=== PATIENT | male | born 1940 | race Caucasian/White ===

== ENCOUNTER 2017-02-09 11:00 | Inpatient (IN) | payer MEDICARE, OTHER ==
[2017-02-06 16:35] LABS: HEMATOCRIT 37.2 % (42.0-54.0); HEMOGLOBIN 11.8 g/dL (13.5-17.5); MCH 23.4 pg (26.0-34.0); MCHC 31.7 g/dL (31.0-37.0); MCV 73.7 fL (80.0-100.0); RBC 5.05 10x6/uL (4.20-6.10); RDW 17.4 % (11.5-14.5); WBC 9.6 10x3/uL (4.8-10.8)
[2017-02-06 16:56] LABS: CALC OSMOLALITY 271 mosm/kg (275-300); CALCIUM 8.5 mg/dL (8.5-10.1); CHLORIDE - SERUM 98 mmol/L (98-107); CREATININE - SERUM 0.8 mg/dL (0.6-1.3); POTASSIUM - SERUM 4.8 mmol/L (3.5-5.1); SODIUM 133 mmol/L (136-145); UREA NITROGEN 13 mg/dL (7-18); eGFR NON AFRICAN AMERICAN > 90 mL/min (90-120)
[2017-02-06 16:57] LABS: GLUCOSE 206 mg/dL (74-106)
[~2017-02-09] VITALS: Ht 172.7 cm; Wt 81.6 kg
[2017-02-09] VITALS (11 sets, daily range): BP systolic 99–149; BP diastolic 41–70; BMI 27.4
[~2017-02-09 11:00] MED LIST: ASPIRIN81 MG PO; BENZONATATE200 MG PO; CELEXA20 MG PO; CLARITIN 10 MG10 MG PO; CLEOCIN HCL300 MG PO; DUONEB 2.5-0.5 M3 ML UPD; HYDROCODONE-APA1 TAB PO; IPRAT-ALBUT 0.5-3 ML UPD; KEFLEX500 MG PO; LEVEMIR100 U/M1 SC; LOPRESSOR25 MG PO; LOPRESSOR50 MG PO; MEDROL DOSE PACK4 MG PO; MELATONIN 3 MG1 TAB PO; MUCINEX600 MG PO; NEURONTIN 300300 MG PO; NICODERM C1 PATCH .1 TRANSDERM; NOVOLOG100 U/M1 SQ; OXYCODONE HCL5 MG PO; PLAVIX75 MG; PLAVIX75 MG PO; PRAVACHOL40 MG PO; PREDNISONE10 MG; PRILOSEC20 MG PO; TYLENOL W/CODEIN5 ML PO; ZESTRIL40 MG PO; ZITHROMAX500 MG PO
--- NOTE | 2017-02-09 13:19 | NUR ---
WOUND VAC INTERMITTANTLY ALARMING. NOTIFIED . LEFT MESSAGE FOR WOUND CARE NURSE.
--- NOTE | 2017-02-09 21:56 | NUR ---
REC'D PATIENT LYING IN BED ASLEEP. NO DISTRESS NOTED. ALERT AND ORIENTED X4. REPORTED THAT HE WAS UNCOMFORTABLE. INSTRUCTED HIM ON THE USE OF HIS BUTCHER. VERBALIZED UNDERSTANDING. DENIED FURTHER NEEDS. WILL CONT TO MONITOR. BED LOW, LOCKED, CALL LIGHT IN REACH, ALARM ON. INSTRUCTED TO CALL IF NEEDED ANYTHING, VERBALIZED UNDERSTANDING.
--- NOTE | 2017-02-10 01:50 | NUR ---
PATIENT IS RESTING WELL IN BED. NO DISTRESS NOTED. WILL CONT TO MONITOR. BED LOW, LOCKED, CALL LIGHT IN REACH, ALARM ON.
--- NOTE | 2017-02-10 02:00 | NUR ---
PT IN BED WITH NO DISTRESS. RESPIRATIONS EVEN AND UNLABORED. SIDE RAILS X 2. BED IS LOW. CALL LIGHT IN REACH.
[2017-02-10 04:00] VITALS: BP 187/99
[2017-02-10 07:15] LABS: BASOPHILS 0.2 % (0-2); EOSINOPHILS 1.4 % (0-7); HEMATOCRIT 33.9 % (42.0-54.0); HEMOGLOBIN 10.4 g/dL (13.5-17.5); IMMATURE GRANULOCYTES 1.4 % (0-5); LYMPHOCYTES 15.5 % (15-50); MCH 22.9 pg (26.0-34.0); MCHC 30.7 g/dL (31.0-37.0); MCV 74.5 fL (80.0-100.0); MEAN PLATELET VOLUME 8.8 fL (7.4-10.4); MONOCYTES 17.2 % (2-11); NEUTROPHILS 64.3 % (40-80); PLATELET COUNT 265 10x3/uL (130-400); RBC 4.55 10x6/uL (4.20-6.10); RDW 17.3 % (11.5-14.5); WBC 9.4 10x3/uL (4.8-10.8)
--- NOTE | 2017-02-10 07:15 | NUR ---
PT REC'D FROM [facility]. RESTING IN BED WITH EYES CLOSED. RESP EVEN AND UNLABORED. NO SIGNS OF DISTRESS. WOUND VAC TO L BKA PULLING SEROSANGUINOUS FLUID TO COLLECTION CHAMBER. BED LOW, CALL LIGHT IN REACH, DENIES NEEDS. CPOC.
[2017-02-10 07:52] LABS: ALBUMIN 2.5 g/dL (3.4-5.0); ALKALINE PHOSPHATASE 103 U/L (46-116); ALT (SGPT) 9 U/L (10-68); CALC OSMOLALITY 274 mosm/kg (275-300); CALCIUM 7.9 mg/dL (8.5-10.1); CARBON DIOXIDE 27.6 mmol/L (21.0-32.0); CHLORIDE - SERUM 99 mmol/L (98-107); CREATININE - SERUM 0.8 mg/dL (0.6-1.3); GLUCOSE 218 mg/dL (74-106); POTASSIUM - SERUM 4.4 mmol/L (3.5-5.1); PROTEIN - SERUM 5.8 g/dL (6.4-8.2); SODIUM 134 mmol/L (136-145); UREA NITROGEN 12 mg/dL (7-18); eGFR NON AFRICAN AMERICAN > 90 mL/min (90-120)
[2017-02-10 08:54] VITALS: BP 153/72
--- NOTE | 2017-02-10 09:30 | NUR ---
NEW BAG OF IVF HUNG PER OCT. PT RESTING IN BED WITH EYES CLOSED. NO SIGNS OF DISTRESS. RESP EVEN AND UNLABORED. BED LOW, CALL LIGHT IN REACH, DENIES NEEDS. CPOC.
--- NOTE | 2017-02-10 10:59 | NUR ---
PT HERE FOR AN INFECTED LEFT STUMP FOR THIS VISIT. PT AOX4 RESP EVEN AND NONLABORED IV TO RIGHT FOREARM PATENT AND INTACT. SRX2 BED AT LOWEST SETTING CALL LIGHT WITHIN REACH
--- NOTE | 2017-02-10 12:30 | NUR ---
HOME MEDS RESTARTED. CURRENT FSBS 265. BOTH RAPID AND LONG ACTING INSULIN ADMINISTERED PER MAR. SITTING UP AT BEDSIDE WITH LUNCH TRAY IN ROOM. BED LOW, CALL LIGHT IN REACH, DENIES NEEDS. CPOC.
[2017-02-10 19:00] VITALS: BP 143/65
--- NOTE | 2017-02-10 19:35 | NUR ---
RECIEVED SHIFT REPORT. PT IS LYING IN BED. ALERT AND ORIENTED AND ABLE TO VERBALIZE NEEDS. IV IS PATENT AND FLUIDS ARE RUNNING PER ORDER. O2 @ 2 PER NASAL CANNULA. PT IS ABLE TO TURN SELF IN BED FOR COMFORT AND SKIN CARE. DRESSING TO BKA C/D/I. PT STATES PAIN IS 9/10 WITH MEDICAL SERVICES ASSISTANT PUMP. NO NEEDS ARE VERBALIZED AT THIS TIME. WILL CONTINUE TO MONITOR. SIDE RAILS ARE UP X 2. BED IS IN LOWEST POSITION. CALL LIGHT IS WITHIN REACH.
--- NOTE | 2017-02-10 20:24 | NUR ---
SHIFT ASSESSMENT COMPLETED. NIGHT MEDS GIVEN WITH NO PROBLEMS. PT RECIEVED 4 UNITS INSULIN PER SLIDING SCALE FOR RLFA=147. NO NEEDS ARE VOICED. WILL MONITOR. SIDE RAILS X 2. BED LOW. CALL LIGHT IN REACH.
[2017-02-11] VITALS: BP 135/63
[2017-02-11 04:00] VITALS: BP 143/70
[2017-02-11 05:15] LABS: BASOPHILS 0.1 % (0-2); EOSINOPHILS 1.7 % (0-7); HEMATOCRIT 35.1 % (42.0-54.0); HEMOGLOBIN 10.8 g/dL (13.5-17.5); LYMPHOCYTES 16.4 % (15-50); MCH 22.7 pg (26.0-34.0); MCHC 30.8 g/dL (31.0-37.0); MCV 73.7 fL (80.0-100.0); MEAN PLATELET VOLUME 8.7 fL (7.4-10.4); MONOCYTES 16.8 % (2-11); PLATELET COUNT 256 10x3/uL (130-400); RBC 4.76 10x6/uL (4.20-6.10); WBC 8.4 10x3/uL (4.8-10.8)
[2017-02-11 05:39] LABS: ALBUMIN 2.8 g/dL (3.4-5.0); ALKALINE PHOSPHATASE 109 U/L (46-116); ALT (SGPT) 10 U/L (10-68); BILIRUBIN - TOTAL 0.57 mg/dL (0.2-1.3); CALCIUM 8.5 mg/dL (8.5-10.1); CARBON DIOXIDE 26.5 mmol/L (21.0-32.0); CHLORIDE - SERUM 97 mmol/L (98-107); CREATININE - SERUM 0.7 mg/dL (0.6-1.3); PROTEIN - SERUM 6.5 g/dL (6.4-8.2); SODIUM 133 mmol/L (136-145); UREA NITROGEN 14 mg/dL (7-18); eGFR NON AFRICAN AMERICAN > 90 mL/min (90-120)
[2017-02-11 05:41] LABS: CALC OSMOLALITY 270 mosm/kg (275-300); GLUCOSE 164 mg/dL (74-106)
[2017-02-11 09:00] VITALS: BP 142/65
--- NOTE | 2017-02-11 11:56 | NUR ---
Patient Name: GONZALEZ OLIVEIRA Admission Status: Elective Accout number: [id number] Admission Date: 02-09-2017 : 1940 Admission Diagnosis: Attending: ARIELLE Current LOS: 2 Anticipated DC Date: Planned Disposition: Primary Insurance: MEDICARE A & B Discharge Planning Comments: CM MET WITH PATIENT AND (ALIDA) REGARDING D/C NEEDS AND PLANS. PATIENT STATED HE HAS A RAMP AT HIS HOME AND HIS AND DAUGHTER WILL DRIVE HIM HOME AT DISCHARGED. PATIENT HAS A RAMP TO ENTER HOME AND NO STAIRS INSIDE. PATIENT STATES HE IS INDEPENDENT WITH HIS CARE BUT NEEDS SOME HELP WHEN DRESSING AND HIS MEDICATIONS. PATIENT HAS A SLIDE BOARD, WHEELCHAIR, SHOWER CHAIR, AND GLUCOMETER AT HOME. PATIENTS PCP IS DR. MCLAUGHLIN IN [place], AND USES [facility] IN [place]. PATIENT IS CURRENT WITH [facility]. PATIENT STATED HIS DAUGHTER AND ALSO HELPS HIM ALOT. PCP DR. JULIA KERR IN [place] [phone] ALIDA (SPOUSE) [phone] Body Trimmer Upholsterer: Ro Thompson Is the patient Alert and Oriented? Yes 0 * How many steps to enter\exit or inside your home? RAMP 0 * PCP DR. DUMONT ([place]) 0 * Pharmacy [facility] ([facility]) 0 * Preadmission Environment Home with Family 0 * ADLs Partial Dependent 0 * Partial ADLs (Assistance needed) Ambulation Dressing Transfers 0 * Equipment Glucometer Shower Chair Wheelchair 0 * List name and contact numbers for known caregivers / representatives who currently or will assist patient after discharge: ALIDA () [phone] 0 * Community resources currently utilized None 0 * Additional services required to return to the preadmission environment? Yes 0 * Can the patient safely return to the preadmission environment? Yes 0 * Has this patient been hospitalized within the prior 30 days at any hospital? No 0 Grand Total: 0
[2017-02-11 12:31] VITALS: BP 119/64
[2017-02-11 17:11] VITALS: BP 105/47
[2017-02-11 20:00] VITALS: BP 135/56
--- NOTE | 2017-02-11 21:02 | NUR ---
UP ON SIDE OF BED. ALERT ORIENTED. X 3. IV INFUSING TO LEFT ARM WITHOUT REDNESS OR EDEMA NOTED. CONSTAVAC INTACT TO LEFT BKA..NO CONMPLAINTS VOICED. CL IN REACH.
[2017-02-12] VITALS: BP 133/60
--- NOTE | 2017-02-12 01:30 | NUR ---
RESTING QUIETLY. NO DISTRESS NOTED. CL IN REACH
--- NOTE | 2017-02-12 02:00 | NUR ---
PT IN BED WITH NO DISTRESS. RESPIRATIONS EVEN AND UNLABORED. SIDE RAILS X 2. BED LOW. CALL LIGHT IN REACH.
[2017-02-12 04:00] VITALS: BP 135/66
--- NOTE | 2017-02-12 05:29 | NUR ---
REMAINS NPO FOR OR. NO CHANGE IN ASSESMENT.
[2017-02-12 05:35] LABS: BASOPHILS 0.2 % (0-2); HEMATOCRIT 35.9 % (42.0-54.0); HEMOGLOBIN 11.3 g/dL (13.5-17.5); IMMATURE GRANULOCYTES 1.1 % (0-5); LYMPHOCYTES 14.7 % (15-50); MCH 23.1 pg (26.0-34.0); MCHC 31.5 g/dL (31.0-37.0); MCV 73.3 fL (80.0-100.0); MEAN PLATELET VOLUME 9.1 fL (7.4-10.4); MONOCYTES 18.2 % (2-11); NEUTROPHILS 64.8 % (40-80); PLATELET COUNT 304 10x3/uL (130-400); RDW 16.9 % (11.5-14.5); WBC 10.5 10x3/uL (4.8-10.8)
[2017-02-12 05:52] LABS: ALBUMIN 2.7 g/dL (3.4-5.0); ALKALINE PHOSPHATASE 106 U/L (46-116); ALT (SGPT) 11 U/L (10-68); CALC OSMOLALITY 268 mosm/kg (275-300); CALCIUM 8.4 mg/dL (8.5-10.1); CARBON DIOXIDE 25.2 mmol/L (21.0-32.0); CHLORIDE - SERUM 96 mmol/L (98-107); CREATININE - SERUM 0.8 mg/dL (0.6-1.3); GLUCOSE 181 mg/dL (74-106); POTASSIUM - SERUM 4.2 mmol/L (3.5-5.1); PROTEIN - SERUM 6.4 g/dL (6.4-8.2); SODIUM 132 mmol/L (136-145); eGFR NON AFRICAN AMERICAN > 90 mL/min (90-120)
[2017-02-12 05:59] LABS: UREA NITROGEN 10 mg/dL (7-18)
--- NOTE | 2017-02-12 07:40 | NUR ---
PT AOX4 RESP EVEN AND NONLABORED PT DENIES NEEDS AT THIS TIME IV TO RIGHT FOREARM PATENT SRX2 BED AT LOWEST SETTING CALL LIGHT WITHIN REACH WILL CONTINUE TO MONITOR
[2017-02-12 09:27] VITALS: BP 175/88
[2017-02-12 13:20] VITALS: BP 131/93
[2017-02-12 14:47] VITALS: Ht 172.7 cm; Wt 81.6 kg
[2017-02-12 16:11] VITALS: BP 118/65
[2017-02-12 20:00] VITALS: BP 106/71
--- NOTE | 2017-02-12 20:48 | NUR ---
AWAKE,WATHCHING TV. NO COMPLAINTS VOICED. IV INFUSING TO RIGHT FOREARM WITHOUT REDNESS OR EDEMA NOTED. COMMERCIAL CREDIT ANALYST DILAUDID IN USE FOR PAIN CONTROL. WOUND VAC INTAC TO LEFT STUMP. CL IN REACH
--- NOTE | 2017-02-12 23:27 | NUR ---
RN NOTE: PT SITTING UP AT BEDSIDE TABLE WATCHING TV. WOUND VAC ON LEFT STUMP WELL COMPRESSED WITH NO LEAKAGE ALARMS. IV IN LEFT WRIST PATENT WITH 1/2 NS INFUSING AT 50 ML / HR. QUALITY CONTROL MANAGER / DILAUDID IN USE FOR PAIN CONTROL. PROVIDED PT WITH ICE CREAM AND LEMON SEL[place]IK SODA PER REQUEST. WILL CONTINUE TO MONITOR FOR NEEDS. CALL LIGHT WITHIN REACH.
[2017-02-13] VITALS: BP 111/56
[2017-02-13 04:00] VITALS: BP 145/67
[2017-02-13 06:00] LABS: BASOPHILS 0.2 % (0-2); EOSINOPHILS 1.1 % (0-7); HEMATOCRIT 31.7 % (42.0-54.0); HEMOGLOBIN 10.1 g/dL (13.5-17.5); IMMATURE GRANULOCYTES 1.1 % (0-5); LYMPHOCYTES 14.3 % (15-50); MCH 23.5 pg (26.0-34.0); MCHC 31.9 g/dL (31.0-37.0); MCV 73.9 fL (80.0-100.0); MEAN PLATELET VOLUME 8.7 fL (7.4-10.4); MONOCYTES 19.9 % (2-11); NEUTROPHILS 63.4 % (40-80); RBC 4.29 10x6/uL (4.20-6.10)
--- NOTE | 2017-02-13 06:02 | NUR ---
WATCHING TV QUIETLY. NO COMPLAINTS VVOICED. CL IN REACH
[2017-02-13 06:04] LABS: PLATELET COUNT 231 10x3/uL (130-400)
[2017-02-13 06:33] LABS: ALBUMIN 2.5 g/dL (3.4-5.0); ALKALINE PHOSPHATASE 94 U/L (46-116); ALT (SGPT) 11 U/L (10-68); BILIRUBIN - TOTAL 0.49 mg/dL (0.2-1.3); CALC OSMOLALITY 261 mosm/kg (275-300); CALCIUM 8.1 mg/dL (8.5-10.1); CARBON DIOXIDE 27.2 mmol/L (21.0-32.0); CHLORIDE - SERUM 96 mmol/L (98-107); CREATININE - SERUM 0.8 mg/dL (0.6-1.3); POTASSIUM - SERUM 4.4 mmol/L (3.5-5.1); SODIUM 130 mmol/L (136-145); UREA NITROGEN 12 mg/dL (7-18); eGFR NON AFRICAN AMERICAN > 90 mL/min (90-120)
[2017-02-13 06:35] LABS: GLUCOSE 118 mg/dL (74-106)
--- NOTE | 2017-02-13 08:00 | NUR ---
PATIENT IN BED WITH NO COMPLAINTS AT THIS TIME. IV INTACT. CALL LIGHT WITHIN REACH.
[2017-02-13 08:44] VITALS: BP 117/63
[2017-02-13 12:40] VITALS: BP 129/59
[2017-02-13 15:36] VITALS: BP 135/67
--- NOTE | 2017-02-13 16:12 | NUR ---
PATIENT IN BED WITH IV INTACT. FAMILY AT BEDSIDE. DRESSING TO LEFT STUMP CDI. CALL LIGHT WITHIN REACH.
--- NOTE | 2017-02-13 17:18 | NUR ---
CM REASSESSMENT NOTE: PATIENT IS D/C HOME TODAY/FAMILY DRIVING. [facility] WILL DELIVER ABX IN THE AM AND THEY ARE AWARE OF PATIENTS D/C TODAY. PATIENT IS CURRENT WITH [facility] AND ARE AWARE ALSO OF PATIENT D/C TODAY. WV WAS DELIVERED AND NURSE WILL CHANGE BEFORE D/C TODAY.
--- NOTE | 2017-02-13 18:45 | NUR ---
PATIENT RECIEVED DC INSTRUCTIONS. VERBALIZED UNDERSTANDING. NO QUESTIONS AT THIS TIME. WOUND VAC CHANGED TO HOME WOUND VAC. NO QUESTIONS. STATED HE HAD ONE BEFORE. IV REMOVED WITH CATH TIP INTACT. PATIENT ESCORTED OUT OF HOSPITAL VIA WC WITH PERSONAL BELONGINGS BY FAMILY AND DIE TRIMMER.
--- NOTE | 2017-02-26 13:14 | OP ---
PATIENT NAME: GONZALEZ OLIVEIRA MEDICAL RECORD: [id number] :[birth year] LOCATION:D.[id number] ADMISSION DATE:02/09/17 SURGEON: DEEPAK EVERETT MD OPERATION DATE: 02/09/17 DATE OF OPERATION: 02/09/2017 Orthopedic Surgery Operative Note PREOPERATIVE DIAGNOSIS: Osteomyelitis of the left BKA stump. POSTOPERATIVE DIAGNOSIS: Osteomyelitis of the left BKA stump. PROCEDURES: 1. Excisional debridement of the left stump to include skin, subcutaneous tissue, portions of fat, fascia, muscle and bone. 2. Application of a negative pressure wound VAC. SURGEON: Deepak Everett MD. ANESTHESIA: General. INTRAOPERATIVE COMPLICATIONS: None. 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 OPERATIVE SUMMARY IN DETAIL: After obtaining the appropriate preoperative orthopedic surgery consent as well as anesthetic consultation, evaluation and clearance, the patient was brought to the operating room and placed on the operating table in supine position. After adequate general laryngeal mask was administered, tourniquet was placed about the proximal aspect of the left lower extremity. Left lower extremity was then prepped and draped in routine sterile fashion. A tourniquet was not used during this case, all portions of appearing tissue were taken after cultures were taken, this was elliptically excised and unfortunately this did go down to the medullary cavity of the tibia. A large curette was used to debride any appearing bone and good bleeding bone was encountered, the bone debridement stopped. Soft tissue, fascia as well as muscle were also taken down. The patient had a superior medial tracking. After good nonpurulent return and all viable tissue was seen, wound VAC was affixed across this large wound with wound measurements as documented in the postoperative note. Having completed this, the patient was awakened, taken to recovery room in stable condition. All final needle and sponge counts were correct. TRANSINT:[id number] Voice Confirmation ID: [id number] DOCUMENT ID: [id number] OPERATIVE REPORT [id number] GONZALEZ OLIVEIRA MD, DEEPAK HOGAN at 1314 CC: [id number] DICTATION DATE: 02/20/17 1023 BUILDING EQUIPMENT INSPECTOR: 02/25/17 2328 DIS IN 02/13/17 [facility] [address] [facility] [place] [address]
== END 2017-02-13 19:08 | disposition home health service (06) | DRG 493 ==
LOC: D.SDCHOLD → D.MS 11:00 → D.SDCHOLD 11:00 → D.OPS 12:15 → D.PAN 12:15 → EDSTATUS 12:15 → D.MS 13:29
PROVIDERS: Anesthesiology; Emergency Medicine; ADMIT Orthopaedic Surgery
PROC: B548ZZA Ultrasonography of Superior Vena Cava, Guidance (ICD-10-PCS; 2017-02-12)
PROC: 02HV33Z Insertion of Infusion Device into Superior Vena Cava, Percutaneous Approach (ICD-10-PCS; principal; 2017-02-13)
PROC: 0QBH0ZZ Excision of Left Tibia, Open Approach (ICD-10-PCS; 2017-02-13)
DX: T87.44 Infection of amputation stump, left lower extremity (principal); M86.9 Osteomyelitis, unspecified; I42.9 Cardiomyopathy, unspecified; F17.203 Nicotine dependence unspecified, with withdrawal; L02.91 Cutaneous abscess, unspecified; J96.12 Chronic respiratory failure with hypercapnia; J96.11 Chronic respiratory failure with hypoxia; D62 Acute posthemorrhagic anemia; E11.69 Type 2 diabetes mellitus with other specified complication; Z79.4 Long term (current) use of insulin; J44.9 Chronic obstructive pulmonary disease, unspecified; Z99.81 Dependence on supplemental oxygen; E11.40 Type 2 diabetes mellitus with diabetic neuropathy, unspecified; I25.10 Atherosclerotic heart disease of native coronary artery without angina pectoris; I73.9 Peripheral vascular disease, unspecified

== ENCOUNTER → 2017-07-13 09:36 | Outpatient (CLI) | payer MEDICARE, OTHER ==
[2017-02-12 14:47] VITALS: BMI 27.3
[~2017-07-13 09:36] MED LIST changes: +DOXYCYCLINE HY100 M2 PO; +ELIQUIS2.5 MG PO; +GABAPENTIN100 MG PO; +MORPHINE SULFAT15 M4 PO; +PERCOCET 10/3251 TA1 PO; +PROVENTIL HFA6.7 GM INH
== END | disposition home or self-care (01) ==
LOC: D.MRI 09:36
DX: B99.9 Unspecified infectious disease (principal); M86.662 Other chronic osteomyelitis, left tibia and fibula

== ENCOUNTER 2017-07-23 05:55 | Inpatient (IN) | payer MEDICARE, OTHER ==
[2017-07-22 10:13] LABS: HEMATOCRIT 36.2 % (42.0-54.0); HEMOGLOBIN 11.2 g/dL (13.5-17.5); MCH 23.4 pg (26.0-34.0); MCHC 30.9 g/dL (31.0-37.0); MCV 75.6 fL (80.0-100.0); MEAN PLATELET VOLUME 9.7 fL (7.4-10.4); RBC 4.79 10x6/uL (4.20-6.10); RDW 16.3 % (11.5-14.5); WBC 11.4 10x3/uL (4.8-10.8)
[2017-07-22 11:12] LABS: CALC OSMOLALITY 276 mosm/kg (275-300); CALCIUM 8.7 mg/dL (8.5-10.1); CARBON DIOXIDE 30.9 mmol/L (21.0-32.0); CHLORIDE - SERUM 99 mmol/L (98-107); CREATININE - SERUM 0.6 mg/dL (0.6-1.3); GLUCOSE 117 mg/dL (74-106); POTASSIUM - SERUM 4.7 mmol/L (3.5-5.1); SODIUM 136 mmol/L (136-145); UREA NITROGEN 23 mg/dL (7-18); eGFR NON AFRICAN AMERICAN > 90 mL/min (90-120)
[~2017-07-23] VITALS: Ht 162.6 cm; Wt 59.1 kg
[~2017-07-23 05:55] MED LIST changes: -DOXYCYCLINE HY100 M2 PO; -ELIQUIS2.5 MG PO; -GABAPENTIN100 MG PO; -MORPHINE SULFAT15 M4 PO; -PERCOCET 10/3251 TA1 PO; -PROVENTIL HFA6.7 GM INH
--- NOTE | 2017-07-23 07:00 | NUR ---
LYING ON RIGHT SIDE WHEN I ENTERED THE ROOM, SNORING. AROUSABLE TO LIGHT TACTILE STIMULI. DOES NOT ANSWER QUESTIONS OR FOLLOW COMMANDS. SKIN IS WET AND COOL. FAMILY STATES HE IS LIKE THAT ALL THE TIME AND TOOK HIS PAIN MEDS THIS MORNING. FAMILY STATES HE SWEATS A LOT AT HOME. FSBS IS 24. ANESTHESIA HERE AND NOTIFIED. IV OF NS STARTED AFTER 20GUAGE IV STARTED IN LEFT AC. D50W 1 AMP GIVEN.
[2017-07-23] MEDS ORDERED: PROVENTIL HFA6.7 GM INH (07:13)
[2017-07-23] MEDS ORDERED: GABAPENTIN100 MG PO (07:14)
[2017-07-23] MEDS ORDERED: MORPHINE SULFAT15 M4 PO (07:15)
[2017-07-23] MEDS ORDERED: PERCOCET 10/3251 TA1 PO (07:16)
--- NOTE | 2017-07-23 07:23 | NUR ---
DR HINSON IN, REPEAT FSBS DONE. 08/11 AMP D50W GIVEN.
[2017-07-23 07:37] VITALS: BP 120/56; BMI 22.3
--- NOTE | 2017-07-23 08:00 | NUR ---
DR HINSON CALLED AND INFORMED OF CRACKLES AND WHEEZES IN LUNG Á[place]. ORDERS RECEIVED. ANSWERS QUESTIONS AND FOLLOWS VERBAL COMMANDS AT THIS TIME. REMOVED UNDERWEAR HIMSELF AND TOOK HIS DENTURES OUT HIMSELF.
--- NOTE | 2017-07-23 09:19 | NUR ---
ENTERED ROOM PATIENT SNORING LOUD ON 2 L 02, COOL TO TOUCH, UNABL TO AROUSE ,WITH PAINFUL STIMULI, FSBS DONE RESULTS [address] HINSON D5OW 1 AMP GIVEN, CALLED FOR STAT GLU, PATIENT AROUSE TO PAINFUL STIMULI
--- NOTE | 2017-07-23 09:39 | NUR ---
FSBS 105 DR HINSON IN ROOM TALKING TO FAMILY,PATIENT RESPOND TO TOUCH AND NAME ,
--- NOTE | 2017-07-23 11:47 | NUR ---
1117 FSBS 61 , 1AMP D50W GIVEN 1145 FSBS 90 , DR HINSON HERE TALKING WITH FAMILY, PATIENT [id number]
--- NOTE | 2017-07-23 14:44 | NUR ---
ANESTHESIA BLOCK DONE TO LEFTLEG, SEE ANESTHESIA NOTES
[2017-07-23 18:07] VITALS: BP 120/56; Ht 162.6 cm; Wt 59.1 kg
[2017-07-23 20:00] VITALS: BP 128/53
--- NOTE | 2017-07-23 20:00 | NUR ---
PT IS RESTING IN BED WITH EYES OPEN. ALERT AND ORIENTED X 3. DENIES ACUTE DISCOMFORT AT THIS TIME. DRESSSING TO LEFT LEG STUMP IS INTACT. RIGHT NECK IJ NOTED. INFUSING WITHOUT DIFFICULTY. SR'S ARE UP X 3 IN BED. CALL LIGHT AND BEDSIDE TABLE ARE WITHIN EASY REACH. LEFT LEG ELEVATED UP ON A PILLOW.
--- NOTE | 2017-07-23 21:15 | NUR ---
DRESSING TO LEFT LEG NOTED TO BE BLEEDING THROUGH DRESSING ONTO SHEETS. DRESSING CHANGED. NOTED TO HAVE A SMALL AMOUNT OF DRAINAGE ALONG THE CENTER OF THE INCISION.
--- NOTE | 2017-07-23 21:35 | NUR ---
DILAUDID YARN SPOOLER SET UP AT THIS TIME ORDERED ON PREVIOUS SHIFT.
--- NOTE | 2017-07-23 22:36 | NUR ---
PT RESTING IN BED WITH EYES OPEN. STATES HIS PAIN LEVEL IS FINALLY STARTING TO GET BETTER.
--- NOTE | 2017-07-24 01:19 | NUR ---
PT RESTING IN BED WITH EYES CLOSED. NO ACUTE DISTRESS NOTED.
--- NOTE | 2017-07-24 03:36 | NUR ---
PT SITTING IN BED WITH EYES OPEN. NO NEEDS VOICED. STATES: " I THINK I GOT ALL MY SLEEP OUT YESTERDAY."
[2017-07-24 04:00] VITALS: BP 123/57
--- NOTE | 2017-07-24 05:04 | NUR ---
RN NOTE: PT AWAKE AND ALERT, WATCHING TV. RIGHT IV PATENT WITH 1/2 NS INFUSING AT 50 ML / HR. WILL CONTINUE TO MONITOR FOR NEEDS.
[2017-07-24 05:39] LABS: HEMATOCRIT 31.3 % (42.0-54.0); HEMOGLOBIN 9.7 g/dL (13.5-17.5)
--- NOTE | 2017-07-24 05:50 | NUR ---
PT RESTING IN BED WITH EYES OPEN. NO NEEDS VOICED.
[2017-07-24 07:11] VITALS: BP 136/64
[2017-07-24] MEDS ORDERED: ELIQUIS2.5 MG PO (08:58)
[2017-07-24] MEDS ORDERED: DOXYCYCLINE HY100 M2 PO (09:02)
--- NOTE | 2017-07-24 10:06 | NUR ---
CM met with patient to assess discharge planning needs. Patient is current with [facility]. Patients will be driving him home. Patient has a walker, wheelchair, nebulizer, shower chair, oxygen & prosthetics at home. He will not need any other DME at this time. CM will fax d/c info to [facility]. CM will continue to follow and assist with d/c planning needs. PCP: ayanna estrada in [facility] () [phone]
--- NOTE | 2017-07-24 11:53 | NUR ---
PT DC HOME, WENT OVER DC INSTRUCTIONS PT LEFT VIA WC WITH FAMILY
--- NOTE | 2017-07-27 09:27 | OP ---
PATIENT NAME: GONZALEZ OLIVEIRA MEDICAL RECORD: [id number] :38 LOCATION:D.MS [facility] ADMISSION DATE:07/23/17 SURGEON: DEEPAK EVERETT MD DATE OF OPERATION: 07/23/2017 PREOPERATIVE DIAGNOSIS: Osteomyelitis of left BKA stump. POSTOPERATIVE DIAGNOSIS: Osteomyelitis of left BKA stump. PROCEDURE: Left AKA (above-knee amputation). SURGEON: Deepak Everett MD ANESTHESIA: General. INTRAOPERATIVE COMPLICATIONS: None. SUMMARY OF PATHOLOGIC FINDINGS: Essentially none. The pathology was below the area of incision. OPERATIVE SUMMARY IN DETAIL: After obtaining the appropriate preoperative orthopedic surgery consent as well as anesthetic consultation, evaluation and clearance, the patient was brought to the operating room and placed on the operating table in supine position. After general laryngeal mask was administered, tourniquet was placed about the proximal aspect of the left lower extremity. Left lower extremity was prepped and draped in routine sterile fashion. Leg was elevated, exsanguinated, and tourniquet was inflated to 350 mmHg. A fishmouth incision was drawn. The incision was taken down through the quadriceps medially and laterally for a good bony exposure. Femoral artery was exposed, clipped, high ligated, and cut. Femoral osteotomy was created. This was followed by using the amputation knife to create the posterior flap. At this point, the tourniquet was let down and any further bleeders were high ligated and/or bovie'd. The posterior and anterior fascia were then brought together with #1 Vicryl. This was followed by subcutaneous closure likewise with #1 Vicryl. At this point, the wound was infiltrated with Vitagel and stapled shut. Sterile dressings were applied. The patient was awakened and taken to the recovery room in stable condition. All final needle and sponge counts were correct. TRANSINT:[id number] Voice Confirmation ID: [id number] DOCUMENT ID: [id number] DEEPAK EVERETT MD at 0927 CC: [id number] DICTATION DATE: 07/23/17 1453 TRAIN BRAKE OPERATOR: 07/23/17 1605 DIS IN 07/24/17 [facility] [id number] [place] [address]
== END 2017-07-24 11:56 | disposition home health service (06) | DRG 475 ==
LOC: D.SDCHOLD 05:55 → D.MS 05:55 → D.SDCHOLD 08:15 → D.MS 15:09
PROVIDERS: Anesthesiology; ADMIT Orthopaedic Surgery
PROC: 0Y6D0Z3 Detachment at Left Upper Leg, Low, Open Approach (ICD-10-PCS; principal; 2017-07-23 08:45)
DX: T87.44 Infection of amputation stump, left lower extremity (principal); M86.9 Osteomyelitis, unspecified; F17.203 Nicotine dependence unspecified, with withdrawal; J96.12 Chronic respiratory failure with hypercapnia; J96.11 Chronic respiratory failure with hypoxia; E11.69 Type 2 diabetes mellitus with other specified complication; I10 Essential (primary) hypertension; E78.00 Pure hypercholesterolemia, unspecified

== ENCOUNTER 2017-07-26 23:39 | Emergency (ER) | payer MEDICARE, OTHER ==
[2017-07-23 18:07] VITALS: BMI 22.3
[~2017-07-26 23:39] MED LIST changes: +DOXYCYCLINE HY100 M2 PO; +ELIQUIS2.5 MG PO; +GABAPENTIN100 MG PO; +MORPHINE SULFAT15 M4 PO; +PERCOCET 10/3251 TA1 PO; +PROVENTIL HFA6.7 GM INH
[2017-07-27 00:17] LABS: BASOPHILS 0 % (0-2); EOSINOPHILS 0.9 % (0-7); HEMATOCRIT 29.6 % (42.0-54.0); HEMOGLOBIN 9.2 g/dL (13.5-17.5); IMMATURE GRANULOCYTES 0.7 % (0-5); LYMPHOCYTES 12.6 % (15-50); MCHC 31.1 g/dL (31.0-37.0); MEAN PLATELET VOLUME 9.2 fL (7.4-10.4); MONOCYTES 16.5 % (2-11); NEUTROPHILS 69.3 % (40-80); PLATELET COUNT 222 10x3/uL (130-400); RDW 16.6 % (11.5-14.5); WBC 8.8 10x3/uL (4.8-10.8)
[2017-07-27 00:29] LABS: ALBUMIN 2.8 g/dL (3.4-5.0); ALKALINE PHOSPHATASE 129 U/L (46-116); ALT (SGPT) 38 U/L (10-68); CALC OSMOLALITY 281 mosm/kg (275-300); CALCIUM 8.4 mg/dL (8.5-10.1); CARBON DIOXIDE 26.1 mmol/L (21.0-32.0); CHLORIDE - SERUM 99 mmol/L (98-107); CREATININE - SERUM 0.7 mg/dL (0.6-1.3); GLUCOSE 259 mg/dL (74-106); POTASSIUM - SERUM 4.7 mmol/L (3.5-5.1); PROTEIN - SERUM 5.9 g/dL (6.4-8.2); SODIUM 135 mmol/L (136-145); UREA NITROGEN 22 mg/dL (7-18); eGFR NON AFRICAN AMERICAN > 90 mL/min (90-120)
== END 2017-07-27 01:20 | disposition home or self-care (01) ==
LOC: D.ER 23:39
PROVIDERS: Family Medicine
DX: G89.18 Other acute postprocedural pain (principal); E11.9 Type 2 diabetes mellitus without complications; I73.9 Peripheral vascular disease, unspecified; F17.200 Nicotine dependence, unspecified, uncomplicated

== ENCOUNTER → 2017-08-04 13:33 | Outpatient (CLI) | payer MEDICARE, OTHER ==
[2017-07-23 18:07] VITALS: BMI 22.3
[2017-08-04 14:02] LABS: HEMATOCRIT 31.9 % (42.0-54.0); HEMOGLOBIN 9.5 g/dL (13.5-17.5)
== END | disposition home or self-care (01) ==
LOC: D.LABREF 13:33
PROVIDERS: Orthopaedic Surgery
DX: Z89.612 Acquired absence of left leg above knee (principal)

== ENCOUNTER 2017-08-13 14:02 | Inpatient (IN) | payer MEDICARE, OTHER ==
[~2017-08-13] VITALS: Ht 162.6 cm; Wt 61.2 kg
--- NOTE | ~2017-08-13 | OP ---
PATIENT NAME: GONZALEZ OLIVEIRA MEDICAL RECORD: [id number] :38 LOCATION:D.MS [facility] ADMISSION DATE:08/13/17 SURGEON: DEEPAK EVERETT MD DATE OF OPERATION: 08/15/2017 PREOPERATIVE DIAGNOSIS: Dehiscence of left above knee amputation. POSTOPERATIVE DIAGNOSIS: Dehiscence of left above knee amputation. PROCEDURE: Revision above-knee amputation with irrigation and debridement to include skin, subcutaneous tissue, portions of fat, fascia, muscle and bone. SURGEON: Deepak Everett MD ANESTHESIA: General. INTRAOPERATIVE COMPLICATIONS: None. SUMMARY OF PATHOLOGIC FINDINGS: The patient had lateral migration of the femur with skin breakdown on the lateral side requiring foreshortening of the amputation and closure. No wound VAC was needed. OPERATIVE SUMMARY IN DETAIL: After obtaining the appropriate preoperative orthopedic surgery consent as well as anesthetic consultation, evaluation and clearance, the patient was brought to the operating room and placed on the operating table in supine position. After adequate general anesthesia was administered, the patient's left stump was prepped and draped in a routine sterile fashion. The area of the exposed bone was immediately incised, opened, and approximately 10 cm of bone was removed from the distal femur. Copious irrigation was then followed by removal of soft tissue and any nonviable tissue was removed. Copious bulb syringe was then followed by closure with #1 Vicryl, 2-0 Vicryl, and skin maria m. Sterile dressings were applied. The patient was awakened, taken to recovery room in stable condition. All final needle and sponge counts were correct. Estimated blood loss was 50 cc. TRANSINT:[id number] Voice Confirmation ID: [id number] DOCUMENT ID: [id number] DEEPAK EVERETT MD at 1657 CC: [id number] DICTATION DATE: 08/15/17 0825 CHICKEN CATCHER: 08/15/17 1129 DIS IN 08/16/[address] [address]
[2017-08-13 15:25] LABS: ANION GAP 16.5 mmol/L (8-16); CALCIUM 8.8 mg/dL (8.5-10.1); CARBON DIOXIDE 24.6 mmol/L (21.0-32.0); CREATININE - SERUM 1.2 mg/dL (0.6-1.3); POTASSIUM - SERUM 5.1 mmol/L (3.5-5.1)
[2017-08-13 16:04] VITALS: BP 95/45
[2017-08-13 16:11] LABS: ERYTHROCYTE SEDIMENTATION RATE 13 mm/hr (0-20)
[2017-08-13 16:13] LABS: BASOPHILS 0.3 % (0-2); EOSINOPHILS 1.9 % (0-7); HEMATOCRIT 33.1 % (42.0-54.0); HEMOGLOBIN 10.2 g/dL (13.5-17.5); IMMATURE GRANULOCYTES 0.9 % (0-5); LYMPHOCYTES 20.9 % (15-50); MCH 21.9 pg (26.0-34.0); MCHC 30.8 g/dL (31.0-37.0); MCV 71.2 fL (80.0-100.0); MEAN PLATELET VOLUME 9.5 fL (7.4-10.4); MONOCYTES 17.3 % (2-11); NEUTROPHILS 58.7 % (40-80); PLATELET COUNT 306 10x3/uL (130-400); RBC 4.65 10x6/uL (4.20-6.10); RDW 16.4 % (11.5-14.5); WBC 9.6 10x3/uL (4.8-10.8)
[2017-08-13 17:23] VITALS: BP 95/45; BMI 23.2
[2017-08-14 04:00] VITALS: BP 127/70
[2017-08-14 05:55] LABS: BASOPHILS 0.3 % (0-2); EOSINOPHILS 1.9 % (0-7); HEMATOCRIT 31.7 % (42.0-54.0); HEMOGLOBIN 9.7 g/dL (13.5-17.5); IMMATURE GRANULOCYTES 0.8 % (0-5); LYMPHOCYTES 22.1 % (15-50); MCH 21.9 pg (26.0-34.0); MCHC 30.6 g/dL (31.0-37.0); MCV 71.7 fL (80.0-100.0); MEAN PLATELET VOLUME 9.4 fL (7.4-10.4); MONOCYTES 16.8 % (2-11); NEUTROPHILS 58.1 % (40-80); PLATELET COUNT 255 10x3/uL (130-400); RBC 4.42 10x6/uL (4.20-6.10); RDW 16.4 % (11.5-14.5); WBC 7.9 10x3/uL (4.8-10.8)
[2017-08-14 06:20] LABS: ANION GAP 12.6 mmol/L (8-16); CALCIUM 8.6 mg/dL (8.5-10.1); CARBON DIOXIDE 26.1 mmol/L (21.0-32.0); CREATININE - SERUM 1.1 mg/dL (0.6-1.3); POTASSIUM - SERUM 4.7 mmol/L (3.5-5.1)
[2017-08-14 08:17] VITALS: BP 90/34
[2017-08-14 09:20] LABS: APTT 34.5 SECONDS (22.8-39.4); INR 1.04 (0.85-1.17); PROTIME 13.2 SECONDS (11.6-15.0)
[2017-08-14 12:44] VITALS: Ht 162.6 cm; Wt 61.2 kg
[2017-08-14 12:45] VITALS: BP 140/64
[2017-08-14 13:37] LABS: % SATURATION 7 % (15-55); IRON 26 ug/dl (35-150); TOTAL IRON BIND CAPACITY 366 ug/dl (260-445); UNSAT IRON BIND CAPACITY 340 ug/dl (150-375)
[2017-08-14 16:51] VITALS: BP 110/47
[2017-08-14 20:00] VITALS: BP 127/52
[2017-08-15 03:39] LABS: BASOPHILS 0.2 % (0-2); EOSINOPHILS 2.4 % (0-7); HEMATOCRIT 29.1 % (42.0-54.0); HEMOGLOBIN 8.9 g/dL (13.5-17.5); IMMATURE GRANULOCYTES 0.8 % (0-5); LYMPHOCYTES 21.6 % (15-50); MCH 22.1 pg (26.0-34.0); MCHC 30.6 g/dL (31.0-37.0); MCV 72.2 fL (80.0-100.0); MEAN PLATELET VOLUME 9.4 fL (7.4-10.4); MONOCYTES 20.6 % (2-11); NEUTROPHILS 54.4 % (40-80); PLATELET COUNT 205 10x3/uL (130-400); RBC 4.03 10x6/uL (4.20-6.10)
[2017-08-15 04:00] VITALS: BP 121/48
[2017-08-15 04:25] LABS: CALCIUM 8.3 mg/dL (8.5-10.1); CARBON DIOXIDE 26.5 mmol/L (21.0-32.0); CHLORIDE - SERUM 97 mmol/L (98-107); CREATININE - SERUM 0.9 mg/dL (0.6-1.3); POTASSIUM - SERUM 4.4 mmol/L (3.5-5.1); SODIUM 132 mmol/L (136-145); VANCOMYCIN - TROUGH 14.8 ug/mL (10.0-20.0); eGFR NON AFRICAN AMERICAN 87 mL/min (90-120)
[2017-08-15 04:28] LABS: CALC OSMOLALITY 269 mosm/kg (275-300); GLUCOSE 155 mg/dL (74-106); UREA NITROGEN 19 mg/dL (7-18)
[2017-08-15 07:17] LABS: FOLATE (FOLIC ACID) - SERUM 8.7 ng/mL (>3.0)
[2017-08-15 08:16] VITALS: BP 106/58
[2017-08-15] MEDS ORDERED: PERCOCET 10/3251 TA1 PO (08:40)
[2017-08-15 09:41] VITALS: BP 153/72
[2017-08-15 20:00] VITALS: BP 121/49
[2017-08-16] VITALS: BP 129/52
[2017-08-16 04:00] VITALS: BP 138/55
[2017-08-16 04:47] LABS: BASOPHILS 0 % (0-2); EOSINOPHILS 1.2 % (0-7); HEMATOCRIT 29.3 % (42.0-54.0); HEMOGLOBIN 8.8 g/dL (13.5-17.5); IMMATURE GRANULOCYTES 0.4 % (0-5); LYMPHOCYTES 13.7 % (15-50); MCH 21.8 pg (26.0-34.0); MCV 72.7 fL (80.0-100.0); MEAN PLATELET VOLUME 9.3 fL (7.4-10.4); NEUTROPHILS 67.7 % (40-80); PLATELET COUNT 192 10x3/uL (130-400); RBC 4.03 10x6/uL (4.20-6.10); RDW 15.9 % (11.5-14.5)
[2017-08-16 04:54] LABS: WBC 7.4 10x3/uL (4.8-10.8)
[2017-08-16 05:02] LABS: CALCIUM 8.4 mg/dL (8.5-10.1); CARBON DIOXIDE 28.2 mmol/L (21.0-32.0); CHLORIDE - SERUM 98 mmol/L (98-107); CREATININE - SERUM 0.8 mg/dL (0.6-1.3); POTASSIUM - SERUM 4.3 mmol/L (3.5-5.1); SODIUM 133 mmol/L (136-145); eGFR NON AFRICAN AMERICAN > 90 mL/min (90-120)
[2017-08-16 05:03] LABS: CALC OSMOLALITY 272 mosm/kg (275-300); GLUCOSE 221 mg/dL (74-106); UREA NITROGEN 13 mg/dL (7-18)
[2017-08-16 08:15] VITALS: BP 148/75
== END 2017-08-16 14:15 | disposition home or self-care (01) | DRG 498 ==
LOC: D.MS 14:02 → D.SDCHOLD 14:02 → D.MS 14:22
PROVIDERS: Internal Medicine Nephrology; Orthopaedic Surgery
PROC: 0QBC0ZZ Excision of Left Lower Femur, Open Approach (ICD-10-PCS; principal; 2017-08-15 08:00)
DX: T87.81 Dehiscence of amputation stump (principal); N17.9 Acute kidney failure, unspecified; M86.9 Osteomyelitis, unspecified; F17.203 Nicotine dependence unspecified, with withdrawal; J44.9 Chronic obstructive pulmonary disease, unspecified; I25.10 Atherosclerotic heart disease of native coronary artery without angina pectoris; D50.9 Iron deficiency anemia, unspecified; E11.40 Type 2 diabetes mellitus with diabetic neuropathy, unspecified; E11.69 Type 2 diabetes mellitus with other specified complication; I73.9 Peripheral vascular disease, unspecified

== ENCOUNTER 2017-08-26 03:30 | Inpatient (IN) | payer MEDICARE, OTHER ==
[~2017-08-26] VITALS: Ht 157.5 cm; Wt 64.0 kg
[2017-08-26 06:26] VITALS: BP 149/71; BMI 25.8
[2017-08-26 08:04] VITALS: BP 138/61
[2017-08-26 09:53] LABS: BASOPHILS 0.1 % (0-2); EOSINOPHILS 0.7 % (0-7); HEMATOCRIT 29.9 % (42.0-54.0); HEMOGLOBIN 9.1 g/dL (13.5-17.5); IMMATURE GRANULOCYTES 1.2 % (0-5); LYMPHOCYTES 9.5 % (15-50); MCH 21.8 pg (26.0-34.0); MCHC 30.4 g/dL (31.0-37.0); MCV 71.7 fL (80.0-100.0); MEAN PLATELET VOLUME 9.4 fL (7.4-10.4); MONOCYTES 11.2 % (2-11); NEUTROPHILS 77.3 % (40-80); RBC 4.17 10x6/uL (4.20-6.10); RDW 17.2 % (11.5-14.5); WBC 6.7 10x3/uL (4.8-10.8)
[2017-08-26 10:13] LABS: PLATELET COUNT 265 10x3/uL (130-400)
[2017-08-26 10:21] LABS: CALC OSMOLALITY 275 mosm/kg (275-300); CALCIUM 8.4 mg/dL (8.5-10.1); CARBON DIOXIDE 26.8 mmol/L (21.0-32.0); CHLORIDE - SERUM 95 mmol/L (98-107); CREATININE - SERUM 0.9 mg/dL (0.6-1.3); GLUCOSE 318 mg/dL (74-106); POTASSIUM - SERUM 4.4 mmol/L (3.5-5.1); SODIUM 130 mmol/L (136-145); UREA NITROGEN 20 mg/dL (7-18); eGFR NON AFRICAN AMERICAN 87 mL/min (90-120)
[2017-08-26 11:58] LABS: ERYTHROCYTE SEDIMENTATION RATE 25 mm/hr (0-20)
[2017-08-26 12:17] VITALS: BP 126/61
[2017-08-26 12:23] VITALS: Ht 157.5 cm; Wt 64.0 kg
[2017-08-26 15:45] VITALS: BP 94/46
[2017-08-26 20:00] VITALS: BP 116/42
[2017-08-27 04:00] VITALS: BP 99/48
[2017-08-27 07:48] VITALS: BP 148/83
[2017-08-27 12:19] VITALS: BP 105/49
[2017-08-27 15:42] VITALS: BP 148/68
[2017-08-27] MEDS ORDERED: LEVEMIR100 U/M1 SC (16:59)
== END 2017-08-27 17:46 | disposition home health service (06) | DRG 564 ==
LOC: D.MS 03:30
PROVIDERS: Orthopaedic Surgery
DX: T87.44 Infection of amputation stump, left lower extremity (principal); G93.40 Encephalopathy, unspecified; I50.22 Chronic systolic (congestive) heart failure; E87.1 Hypo-osmolality and hyponatremia; F17.203 Nicotine dependence unspecified, with withdrawal; E11.649 Type 2 diabetes mellitus with hypoglycemia without coma; I11.0 Hypertensive heart disease with heart failure; J44.9 Chronic obstructive pulmonary disease, unspecified

== ENCOUNTER 2019-03-09 09:26 | Inpatient (IN) | payer MEDICARE, OTHER ==
[~2019-03-09] VITALS: Ht 157.5 cm; Wt 71.4 kg
[2019-03-09] VITALS (14 sets, daily range): BP systolic 93–141; BP diastolic 6–97
--- NOTE | 2019-03-09 09:32 | NUR ---
RT ARRIVES AT BEDSIDE.
--- NOTE | 2019-03-09 09:43 | NUR ---
PT ARRIVES IN ED WITH A LIP LAC. APPEARS PT BIT LIP SPECIFICATION CONSULTANT.
--- NOTE | 2019-03-09 09:45 | NUR ---
18G IV PLACED BY DR. GUTIERRES LEFT EJ WITH BLOOD DRAW.
--- NOTE | 2019-03-09 10:15 | NUR ---
NG TUBR TO LEFT NARE, 16FR PLACEMENT VERIFIED WITH 20CC AIRBOLAS AND AUSCULATATION. KRUSE CATH INSERTED INTO BLADDER, SECRUED WITH STAT LOCK, CLEAR YELLOW URINE RETURN NOTED. PATIENT REMAINS SEDATED, ORALLY INTUBATED TO MECHANICAL VENTILATION WITH INLINE SUCTION.
[2019-03-09 10:17] LABS: ALBUMIN 3.5 g/dL (3.4-5.0); ALKALINE PHOSPHATASE 89 U/L (46-116); ALT (SGPT) 21 U/L (10-68); BILIRUBIN - TOTAL 0.54 mg/dL (0.2-1.3); CALC OSMOLALITY 271 mosm/kg (275-300); CALCIUM 8.6 mg/dL (8.5-10.1); CARBON DIOXIDE 30.6 mmol/L (21.0-32.0); CHLORIDE - SERUM 100 mmol/L (98-107); CREATININE - SERUM 0.7 mg/dL (0.6-1.3); POTASSIUM - SERUM 4.6 mmol/L (3.5-5.1); PROTEIN - SERUM 6.4 g/dL (6.4-8.2); SODIUM 136 mmol/L (136-145); UREA NITROGEN 17 mg/dL (7-18); eGFR NON AFRICAN AMERICAN > 90 mL/min (90-120)
[2019-03-09 10:18] LABS: GLUCOSE 59 mg/dL (74-106)
[2019-03-09 10:28] LABS: BASOPHILS 0.1 % (0-2); EOSINOPHILS 0.8 % (0-7); HEMATOCRIT 36.9 % (42.0-54.0); HEMOGLOBIN 12.7 g/dL (13.5-17.5); IMMATURE GRANULOCYTES 0.8 % (0-5); LYMPHOCYTES 11.1 % (15-50); MCH 31.1 pg (26.0-34.0); MCHC 34.4 g/dL (31.0-37.0); MCV 90.2 fL (80.0-100.0); MEAN PLATELET VOLUME 9.6 fL (7.4-10.4); NEUTROPHILS 75.2 % (40-80); RBC 4.09 10x6/uL (4.20-6.10); RDW 14.8 % (11.5-14.5); WBC 9.8 10x3/uL (4.8-10.8)
[2019-03-09 10:29] LABS: PLATELET COUNT 177 10x3/uL (130-400)
[2019-03-09 10:31] LABS: APTT 29.9 SECONDS (22.8-39.4); CKMB 4.1 U/L (0.0-3.6); CREATINE KINASE 79 UL (21-232); INR 1.1 (0.85-1.17); PRO BNP 1901 pg/mL (0-450); PROTIME 13.7 SECONDS (11.6-15.0)
[2019-03-09 10:33] LABS: TROPONIN-I < 0.017 ng/mL (0.000-0.060)
[2019-03-09 10:35] LABS: APPEARANCE CLEAR (CLEAR); BILIRUBIN NEGATIVE (NEGATIVE); COLOR YELLOW (YELLOW); GLUCOSE 1000 mg/dL (NEGATIVE); KETONE NEGATIVE (NEGATIVE); NITRITE NEGATIVE (NEGATIVE); PROTEIN NEGATIVE (NEGATIVE); SPECIFIC GRAVITY 1.015 (1.005-1.020); UROBILINOGEN NORMAL (NORMAL)
--- NOTE | 2019-03-09 10:45 | NUR ---
PATIENTS SON AT BEDSIDE, PATIENTS INSURANCE CARDS AND SOCIAL SECURITY CARD GIVEN TO SON DAWOOD ROXANNE.
--- NOTE | 2019-03-09 10:59 | NUR ---
POC FSBS 71. [address] GUTIERRES
[2019-03-09 12:14] LABS: % SATURATION 12 % (15-55); IRON 46 ug/dl (35-150); TOTAL IRON BIND CAPACITY 372 ug/dl (260-445); UNSAT IRON BIND CAPACITY 326 ug/dl (150-375)
[2019-03-09 13:04] LABS: CKMB 3.6 U/L (0.0-3.6); CREATINE KINASE 63 UL (21-232); TROPONIN-I 0.024 ng/mL (0.000-0.060)
--- NOTE | 2019-03-09 13:52 | NUR ---
LEFT EJ DC'D ACCIDENTLY BY PATIENT R/T COUGHING AND MOVEMENT, CATH INTACT. DRSG PLACED OVER PUNCTURE SITE. DR. GUTIERRES AT BEDSIDE, 18G IV PLACED IN RIGHT EJ WITHOUT PROBLEM.
--- NOTE | 2019-03-09 14:30 | NUR ---
PT ARRIVED IN THE UNIT. PT HOOKED TO ICU MONITORS. PT SEDATED AND ON THE VENTILATOR. L NARKendall NGT NOTED. IV NOTED TO RIGHT NECK AND TO HIS RIGHT HAND. BOTH PATENT WITH C/D/I DRESSINGS. NO S/SX OF INFILTRATION. RIGHT BKA NOTED AND LEFT AKA NOTED. WILL CONT POC.
--- NOTE | 2019-03-09 14:38 | NUR ---
DR BENÍTEZ AT THE PTS SIDE. HE STATED DO NOT WEEN THE PT UNTILL HE SEES THE PT TOMORROW IN THE MORNING. NO CXR AND NO ABGS PER DR BENÍTEZ. DR BENÍTEZ DOING BRONCH AT THE PTS BEDSIDE.
--- NOTE | 2019-03-09 14:59 | NUR ---
FAMILY AT THE PTS BEDSIDE. UPDATED THE FAMILY AND PLAN FOR CVL PLACEMENT. FSBS 50. 1/[address] BENÍTEZ.
--- NOTE | 2019-03-09 15:15 | NUR ---
DR BENÍTEZ PLACED CVL IN THE RIGHT SUB CLAVIAN. DRESSING C/D/I. STAT XRAY ORDERED. MAHENDRA SARMIENTO APPLIED TO THE PT.
--- NOTE | 2019-03-09 15:44 | NUR ---
VASULAR ACCESS NURSE PLACED A 20 GAUGE IN LEFT AC. PATENT. NO S/SX OF HEMATOMA OR INFILTRATION.
--- NOTE | 2019-03-09 18:43 | NUR ---
PT VSS AT THIS TIME. WLL CONT POC.
[2019-03-09 18:55] LABS: MACROPHAGES BF 10 %; MESOTHELIALS BF 2 %; NEUT - BF 49 %
--- NOTE | 2019-03-09 19:30 | NUR ---
ASSESSMENT COMPLETED, PT SEDATED, OPENS EYES TO STIMULI, BILAT SWR IN USE, R TLSC INTACT WITH PROPOFOL @ 15CC/HR AND NS @ KVO, KRUSE PATENT TO BSD WITH CLEAR WAYNE URINE, OLD LEFT AKA, OLD RIGHT BKA
[2019-03-09 20:32] LABS: CKMB 5.1 U/L (0.0-3.6); CREATINE KINASE 77 UL (21-232); TROPONIN-I 0.022 ng/mL (0.000-0.060)
--- NOTE | 2019-03-09 21:30 | NUR ---
RESTING QUIETLY, RESPONDS TO VERBAL, NO DISTRESS NOTED
--- NOTE | 2019-03-09 23:30 | NUR ---
RESTING QIUETLY, VITALS STABLE, WILL CONT TO MONITOR
[2019-03-10] VITALS (26 sets, daily range): BP systolic 98–146; BP diastolic 44–80; Ht 157.5 cm; Wt 71.4 kg
[2019-03-10 00:25] LABS: CKMB 3.4 U/L (0.0-3.6); CREATINE KINASE 76 UL (21-232); TROPONIN-I < 0.017 ng/mL (0.000-0.060)
--- NOTE | 2019-03-10 01:30 | NUR ---
PT BATHED, AWAKE, FOLLOWS COMMANDS
--- NOTE | 2019-03-10 03:30 | NUR ---
PT AROUSES EASILY, SUCTIONED FREQUENTLY, COPIUS SECRETIONS, NO DISTRESS NOTED
[2019-03-10 04:54] LABS: BASOPHILS 0.1 % (0-2); EOSINOPHILS 0 % (0-7); HEMATOCRIT 35.5 % (42.0-54.0); HEMOGLOBIN 11.9 g/dL (13.5-17.5); IMMATURE GRANULOCYTES 0.8 % (0-5); LYMPHOCYTES 5.1 % (15-50); MCH 30.3 pg (26.0-34.0); MCHC 33.5 g/dL (31.0-37.0); MCV 90.3 fL (80.0-100.0); MEAN PLATELET VOLUME 10.3 fL (7.4-10.4); MONOCYTES 8.7 % (2-11); NEUTROPHILS 85.3 % (40-80); PLATELET COUNT 196 10x3/uL (130-400); RBC 3.93 10x6/uL (4.20-6.10); RDW 15.3 % (11.5-14.5); WBC 11.8 10x3/uL (4.8-10.8)
[2019-03-10 05:32] LABS: ALKALINE PHOSPHATASE 80 U/L (46-116); ALT (SGPT) 17 U/L (10-68); BILIRUBIN - TOTAL 0.67 mg/dL (0.2-1.3); CALCIUM 7.6 mg/dL (8.5-10.1); CARBON DIOXIDE 26.6 mmol/L (21.0-32.0); CHLORIDE - SERUM 101 mmol/L (98-107); POTASSIUM - SERUM 4.7 mmol/L (3.5-5.1); PROTEIN - SERUM 5.5 g/dL (6.4-8.2); SODIUM 136 mmol/L (136-145); eGFR NON AFRICAN AMERICAN 86 mL/min (90-120)
--- NOTE | 2019-03-10 05:39 | NUR ---
PT SEDATED, CALM, NO DISTRESS NOTED
[2019-03-10 05:52] LABS: CALC OSMOLALITY 280 mosm/kg (275-300); CREATININE - SERUM 0.9 mg/dL (0.6-1.3); GLUCOSE 211 mg/dL (74-106); UREA NITROGEN 22 mg/dL (7-18)
--- NOTE | 2019-03-10 07:00 | NUR ---
PATIENT RESTING IN BED ON VENTILATOR WITH PROPOFOL INFUSING AT 45MCG. PATIENT AWAKE AND ALERT BUT NOT FIGHTING VENT. VSS. WILL CONTINUE TO MONITOR
--- NOTE | 2019-03-10 07:30 | NUR ---
PLACED ON SPONTANEOUS TRIALS. SEDATION TURNED OFF
--- NOTE | 2019-03-10 08:40 | NUR ---
PATIENT EXTUBATED AT THIS TIME. AWAKE ALERT AND ORIENTED. PLACED ON BIPAP
--- NOTE | 2019-03-10 19:30 | NUR ---
PT ALERT, ORIENTED, VOICES NEEDS, R HAND PIV D/C'D, NS @ KVO VIA RIGHT AIXA ZAMARRIPA PATENT TO BSD, NO C/O @ THIS TIME
--- NOTE | 2019-03-10 19:58 | MORECARE ---
CASE MANAGEMENT DISCHARGE SUMMARY PATIENT: GONZALEZ OLIVEIRA UNIT: [id number] ADM DATE: 03/09/19 AGE: 78 : 39 SEX: M ROOM/BED: D.2310 AUTHOR: UBALDO CHENG PHYSICIAN: REFERRING PHYSICIAN: RAMIRO LARES MD DATE OF SERVICE: 03/10/19 Discharge Plan Patient Name: GONZALEZ OLIVEIRA Facility: [facility]:[place] : 1940 Planned Disposition: Home Anticipated Discharge Date: Discharge Date: Expected LOS: Initial Reviewer: [email or web address] Initial Review Date: 03/10/2019 Generated: 03/10/19 8:58 pm DCPIA - Discharge Planning Initial Assessment Updated by [email or web address]: Moni Lin on 03/10/19 7:57 pm * Is the patient Alert and Oriented? Yes * How many steps to enter\exit or inside your home? * PCP JULIA * Pharmacy [facility] * Preadmission Environment Home with Family * ADLs Independent * Other Equipment HOME 02 / PORTABLE, W/C, NEBULIZER, ELECTRIC W/C * List name and contact numbers for known caregivers / representatives who currently or will assist patient after discharge: ALIDA OLIVEIRA - - [phone] DAWOOD OLIVEIRA -SON- [phone] * Verbal permission to speak to the caregivers and representatives has been obtained from the patient. Yes * Community resources currently utilized None * Additional services required to return to the preadmission environment? No * Can the patient safely return to the preadmission environment? Yes * Has this patient been hospitalized within the prior 30 days at any hospital? No Patient Name: GONZALEZ OLIVEIRA Page [id number] at 8 All edits/amendments must be made on the electronic document DICTATION DATE: 03/10/191957 STORE RECEIVING CLERK: DIANA 03/10/191957 RPT#: [id number] DC DATE: STATUS: ADM IN [facility] [address] [place] [address] END OF REPORT
--- NOTE | 2019-03-10 20:05 | MORECARE ---
CASE MANAGEMENT DISCHARGE SUMMARY PATIENT: GONZALEZ OLIVEIRA UNIT: [id number] ADM DATE: 03/09/19 AGE: 78 : 39 SEX: M ROOM/BED: D.2310 AUTHOR: PROSPER,DOC PHYSICIAN: REFERRING PHYSICIAN: RAMIRO LARES MD DATE OF SERVICE: 03/10/19 Discharge Plan Patient Name: GONZALEZ OLIVEIRA Facility: [facility]:[place] : 1940 Planned Disposition: Home Anticipated Discharge Date: Discharge Date: Expected LOS: Initial Reviewer: [email or web address] Initial Review Date: 03/10/2019 Generated: 03/10/19 9:05 pm Comments DCP- Discharge Planning Updated by [email or web address]: Moni Lin on 03/10/19 7:[address] Patient Name: GONZALEZ OLIVEIRA Admission Status: ER Accout number: [id number] Admission Date: 03-09-2019 : 1940 Admission Diagnosis:PNEUMONIA, UNSPECIFIED ORGANISM Attending: RAMIRO LARES Current LOS: 1 Anticipated DC Date: Planned Disposition: Home Primary Insurance: MEDICARE A & B Discharge Planning Comments: CM met with patient and spouse Alida at bedside after explaining CM role and obtaining verbal consent. Patient lives at home with his and plans to return there upon discharge. Patient feels this would be a safe discharge. Patient is a bilateral amputee. CM discussed availability / needs of home health and medical equipment. Patient denies any discharge needs at this time. Patient states he will have his drive him home upon discharge. CM will continue to follow and assist as needed with discharge planning / needs. Cable Armorer: Moni Lin DCPIA - Discharge Planning Initial Assessment Updated by [email or web address]: Moni Lin on 03/10/19 7:57 pm * Is the patient Alert and Oriented? Yes * How many steps to enter\exit or inside your home? * PCP JULIA * Pharmacy [facility] - IN [place] * Preadmission Environment Home with Family * ADLs Independent * Other Equipment HOME 02 / PORTABLE, W/C, NEBULIZER, ELECTRIC W/C * List name and contact numbers for known caregivers / representatives who currently or will assist patient after discharge: ALIDA OLIVEIRA - - [phone] DAWOOD OLIVEIRA -SON- [phone] * Verbal permission to speak to the caregivers and representatives has been obtained from the patient. Yes * Community resources currently utilized None * Additional services required to return to the preadmission environment? No * Can the patient safely return to the preadmission environment? Yes * Has this patient been hospitalized within the prior 30 days at any hospital? No Last DP export: 03/10/19 6:58 pm Patient Name: GONZALEZ OLIVEIRA Page [id number] at 2005 All edits/amendments must be made on the electronic document DICTATION DATE: 03/10/192004 STITCH BONDING MACHINE TENDER HELPER: DIANA 03/10/192004 RPT#: [id number] DC DATE: STATUS: ADM IN [facility] [address] [place] [address] END OF REPORT
--- NOTE | 2019-03-10 21:30 | NUR ---
AWAKE WATCHING TV, STABLE, WILL CONT TO MONITOR
--- NOTE | 2019-03-10 23:40 | NUR ---
PT TRYING TO SIT UP ON SIDE OF BED, HR 145, EXTREME SOB, RETURNED TO BED AND PLACED ON BIPAP, HR DOWN TO 118 AFTER 3 MINUTES ON BIPAP WITH HOB ELEVATED,
[2019-03-11] VITALS (24 sets, daily range): BP systolic 119–172; BP diastolic 53–97
--- NOTE | 2019-03-11 01:30 | NUR ---
RESTING QUIETLY, WATCHING TV WITH NO C/O
--- NOTE | 2019-03-11 03:45 | NUR ---
PT AWAKE IN RESP DISTRESS, HR 145, B/P ELEVATED, PLAACED ON BIPAP, REPOSITIONED, PAGED DR BENÍTEZ AND RECIEVED ORDERS
[2019-03-11 05:32] LABS: BASOPHILS 0.1 % (0-2); EOSINOPHILS 0.6 % (0-7); HEMATOCRIT 34.8 % (42.0-54.0); HEMOGLOBIN 11.8 g/dL (13.5-17.5); IMMATURE GRANULOCYTES 0.7 % (0-5); LYMPHOCYTES 5.1 % (15-50); MCH 30.9 pg (26.0-34.0); MCHC 33.9 g/dL (31.0-37.0); MCV 91.1 fL (80.0-100.0); MONOCYTES 9.8 % (2-11); NEUTROPHILS 83.7 % (40-80); PLATELET COUNT 162 10x3/uL (130-400); RBC 3.82 10x6/uL (4.20-6.10); RDW 15.9 % (11.5-14.5)
[2019-03-11 05:33] LABS: WBC 8.4 10x3/uL (4.8-10.8)
[2019-03-11 05:45] LABS: ALBUMIN 3.3 g/dL (3.4-5.0); ALKALINE PHOSPHATASE 85 U/L (46-116); BILIRUBIN - TOTAL 0.75 mg/dL (0.2-1.3); CALC OSMOLALITY 285 mosm/kg (275-300); CALCIUM 7.7 mg/dL (8.5-10.1); CARBON DIOXIDE 29.5 mmol/L (21.0-32.0); CHLORIDE - SERUM 101 mmol/L (98-107); CREATININE - SERUM 0.8 mg/dL (0.6-1.3); GLUCOSE 221 mg/dL (74-106); POTASSIUM - SERUM 4.1 mmol/L (3.5-5.1); PROTEIN - SERUM 6.1 g/dL (6.4-8.2); SODIUM 138 mmol/L (136-145); UREA NITROGEN 22 mg/dL (7-18); eGFR NON AFRICAN AMERICAN > 90 mL/min (90-120)
[2019-03-11 05:46] LABS: ALT (SGPT) 22 U/L (10-68)
--- NOTE | 2019-03-11 05:57 | NUR ---
PT ASLEEP WITH BIPAP IN USE, VITALS STABLE
--- NOTE | 2019-03-11 07:00 | NUR ---
SHIFT ASSESSMENT COMPLETED. PT CARE ASSUMED. MONITORS ON AND WORKING, VITALS STABLE. CALL LIGHT WITHIN REACH, WILL CONTINUE TO OBSERVE.
--- NOTE | 2019-03-11 09:00 | NUR ---
PT SITTING UP IN BED EATING BREAKFAST, MONITORS ON AND WORKING, PT AWAKE AND ALERT, CALL LIGHT WITHIN REACH, WILL CONTINUE TO OBSERVE.
--- NOTE | 2019-03-11 11:00 | NUR ---
PT TURNED AND REPOSITIONED IN BED, MONITORS ON AND WORKING, VITALS STABLE. PT SITTING UP EATING LUNCH. SEE FLOW SHEET FOR FURTHER DETAILS. CALL LIGHT WITHIN REACH, WILL CONTINUE TO OBSERVE.
--- NOTE | 2019-03-11 13:00 | NUR ---
NO CHANGES, MONITORS ON AND WORKING, VITALS STABLE, CALL LIGHT WITHIN REACH, WILL CONTINUE TO OBSERVE.
--- NOTE | 2019-03-11 15:00 | NUR ---
PT TURNED AND REPOSITIONED FOR COMFORT. MONITORS ON AND WORKING, VITALS STABLE. SEE FLOW SHEET FOR FURTHER DETAILS. CALL LIGHT WITHIN REACH, WILL CONTINUE TO OBSERVE.
--- NOTE | 2019-03-11 17:00 | NUR ---
EXPLAINED TO PT THE IMPORTANCE OF WEARING BIPAP THROUGHOUT THE NIGHT, FAMILY AT BEDSIDE, UPDATE PROVIDED, MONITORS ON AND WORKING, VITALS STABLE. CALL LIGHT WITHIN REACH, WILL CONTINUE TO OBSERVE.
[2019-03-11 17:08] LABS: AFB SPECIMEN PROCESSING Concentration (())
--- NOTE | 2019-03-11 21:59 | NUR ---
1900 ASSESSMENT COMPLETED AT THIS TIME. PT DENIES COMPLAINTS OR DISTRESS AT THIS TIME 2100 PT GIVEN MEDICINES WITHOUT PROBLEMS. PT REQUESTING B-PAP TO BE PLACED SO HE COULD GO TO SLEEP, WILL MONITOR PATIENTS COND.
--- NOTE | 2019-03-11 23:27 | NUR ---
2300 PT REASSEMENT COMPLETED AT THIS TIME, PT AWAKE AND ALERT WATCHING TV, NO DISTRESS SEE AT THIS TIME. WILL CONTINUE TO MONITOR
[2019-03-12] VITALS (15 sets, daily range): BP systolic 102–146; BP diastolic 50–95
--- NOTE | 2019-03-12 01:16 | NUR ---
0100 PT SITTING UP WATCHING TV, NO CHANGES IN COND. WILL MONITOR FOR CHANGES
[2019-03-12 05:48] LABS: BASOPHILS 0.1 % (0-2); EOSINOPHILS 1.2 % (0-7); HEMATOCRIT 36.3 % (42.0-54.0); HEMOGLOBIN 12.2 g/dL (13.5-17.5); IMMATURE GRANULOCYTES 0.6 % (0-5); LYMPHOCYTES 11.3 % (15-50); MCH 30.5 pg (26.0-34.0); MCHC 33.6 g/dL (31.0-37.0); MCV 90.8 fL (80.0-100.0); MEAN PLATELET VOLUME 9.1 fL (7.4-10.4); NEUTROPHILS 71.8 % (40-80); PLATELET COUNT 165 10x3/uL (130-400); RDW 15.7 % (11.5-14.5)
[2019-03-12 06:03] LABS: ALBUMIN 3.2 g/dL (3.4-5.0); ALKALINE PHOSPHATASE 82 U/L (46-116); ALT (SGPT) 20 U/L (10-68); BILIRUBIN - TOTAL 0.76 mg/dL (0.2-1.3); CALC OSMOLALITY 282 mosm/kg (275-300); CALCIUM 7.8 mg/dL (8.5-10.1); CARBON DIOXIDE 33.1 mmol/L (21.0-32.0); CHLORIDE - SERUM 100 mmol/L (98-107); CREATININE - SERUM 0.8 mg/dL (0.6-1.3); POTASSIUM - SERUM 3.7 mmol/L (3.5-5.1); PROTEIN - SERUM 6.1 g/dL (6.4-8.2); SODIUM 139 mmol/L (136-145); UREA NITROGEN 26 mg/dL (7-18); eGFR NON AFRICAN AMERICAN > 90 mL/min (90-120)
[2019-03-12 06:05] LABS: GLUCOSE 95 mg/dL (74-106)
--- NOTE | 2019-03-12 07:30 | NUR ---
REPORT RECEIVED. PT ALERT AND ORIENTED. ON O2 AT 4L. PT HAS RIGHT BKA AND LEFT AKA. HE HAS A RIGHT SUBCLAVIAN WITH NS AT KVO AND GETS ANTIBIOTICS. PT HAS A KRUSE. HE IS A FSBS ACHS. HEAD TO TOE ASSESSMENT DONE.
--- NOTE | 2019-03-12 07:31 | NUR ---
0300 pt reassessment completed at this time, will mon. for changes 0500 i and o completed no distress noted
--- NOTE | 2019-03-12 09:15 | NUR ---
DR BENÍTEZ STATES THAT PT IS OKAY TO TRANSFER TO TELEMETRY UNIT FROM HIS STANDPOINT.
--- NOTE | 2019-03-12 10:03 | NUR ---
CALLED DR LARES TO SEE ABOUT TRANSFER ORDERS. HE STATED THAT HE WOULD REVIEW PT CHART AND PT, THAT HE WAS ON HIS WAY TO HOSPITAL AT THIS TIME. WILL FOLLOW UP.
--- NOTE | 2019-03-12 12:10 | NUR ---
BLOOD SUGAR 272. COVERED WITH 6 UNITS OF REG INSULIN. LUNCH TRAY GIVEN TO PT.
--- NOTE | 2019-03-12 13:18 | NUR ---
PT NEEDS TO HAVE BOWEL MOVEMENT. STATED THAT MYSELF AND BERTIN BONE, WOULD NOT BE ENOUGH TO GET HIM TO BSC, THAT HE NEEDED 2 MEN TO PICK HIM UP AND PLACE HIM ON BSC. DISCUSSED WITH HIM THE USE OF A SLIDE BOARD IF WE COULD GET ONE, AND HE STATED THAT HE WOULD BE ABLE TO DO THAT WITH OUR ASSISTANCE. PHYSICAL THERAPY CONSULT PUT IN. ASKED PT IF HE WANTED TO USE THE BEDPAN IN THE MEANTIME. PT REFUSED. STATED HE WOULD HOLD IT INSTEAD.
--- NOTE | 2019-03-12 14:22 | NUR ---
PT TO GO TO 2106. REPORT CALLED TO YOLA MOLINA.
--- NOTE | 2019-03-12 14:59 | NUR ---
PT ARRIVED VIA PERSONAL WHEELCHAIR, SELF TRANSFER. PT IS A/OX4, PROSTETIC TO LL. NO COMPLAINTS/CONCERNS VIOCED. STATES HE'S VERY HAPPY TO BE HERE AND WANTS HIS CATHETER OUT SOON. STATES HE WILL BE GONG HOME TOMORROW NO MATTER WHAT BECAUSE IT'S TIME FOR HIM TO LEAVE. INFORMED PT I WOULD TAKE HIS CATHETER OUT LATER BUT THAT I WOULD HAVE TO CHECK FIRST THAT IT WAS SAFE. PT REQUESTS TO STAY IN HIS WHEELCAHIR FOR THE TIME BEING, AGREES TO CALL FOR HELP IF/WHEN HE NEEDS IT. CL IN REACH, DOOR OPEN. NO FAMILY PRESENT AT THIS TIME.
--- NOTE | 2019-03-12 17:45 | NUR ---
PT AWAKE AND ORIENTED. TRANSFERED HIMSELF FROM WHEELCHAIR TO BED WITHOUT DIFFICULTY. STILL DEADSET ON GOING HOME TOMORROW. NO COMPLAINTS/CONCERNS VOICED AT THIS TIME. CL IN REACH, SRX2. ALL QUESTIONS ANSWERED TO THE BEST OF MY ABILITIES.
--- NOTE | 2019-03-12 19:00 | NUR ---
PATIENT LAYING IN BED. PATIENT COMPLAINS OF PHANTOM PAIN. PATIENT GIVEN PAIN MEDICATION ORDERED. NO OTHER COMPLAINTS AT THIS TIME. NO DISTRESS NOTED.
--- NOTE | 2019-03-12 23:40 | NUR ---
PATIENT LAYING IN BED, EYES CLOSED, CHEST RISING AND FALLING. NO DISTRESS NOTED.
[2019-03-13] VITALS: BP 110/65
--- NOTE | 2019-03-13 03:03 | NUR ---
I have reviewed this patient and I concur with the Shift Assessment completed by the Licensed Practical Nurse today this shift.
[2019-03-13 04:00] VITALS: BP 130/62
[2019-03-13 05:22] LABS: BASOPHILS 0.3 % (0-2); EOSINOPHILS 2.6 % (0-7); HEMATOCRIT 35.7 % (42.0-54.0); IMMATURE GRANULOCYTES 1.1 % (0-5); LYMPHOCYTES 18.3 % (15-50); MCH 30.3 pg (26.0-34.0); MCHC 33.6 g/dL (31.0-37.0); MCV 90.2 fL (80.0-100.0); MEAN PLATELET VOLUME 9.8 fL (7.4-10.4); MONOCYTES 16.9 % (2-11); NEUTROPHILS 60.8 % (40-80); PLATELET COUNT 153 10x3/uL (130-400); RBC 3.96 10x6/uL (4.20-6.10); RDW 15.2 % (11.5-14.5); WBC 6.3 10x3/uL (4.8-10.8)
[2019-03-13 05:36] LABS: ALKALINE PHOSPHATASE 77 U/L (46-116); ALT (SGPT) 25 U/L (10-68); BILIRUBIN - TOTAL 0.67 mg/dL (0.2-1.3); CALC OSMOLALITY 290 mosm/kg (275-300); CALCIUM 8.3 mg/dL (8.5-10.1); CARBON DIOXIDE 34.1 mmol/L (21.0-32.0); CHLORIDE - SERUM 96 mmol/L (98-107); CREATININE - SERUM 0.9 mg/dL (0.6-1.3); POTASSIUM - SERUM 3.6 mmol/L (3.5-5.1); PROTEIN - SERUM 5.8 g/dL (6.4-8.2); SODIUM 137 mmol/L (136-145); UREA NITROGEN 29 mg/dL (7-18); eGFR NON AFRICAN AMERICAN 86 mL/min (90-120)
[2019-03-13 05:40] LABS: GLUCOSE 293 mg/dL (74-106)
--- NOTE | 2019-03-13 07:08 | NUR ---
PT AWAKE AND ORIENTED, IN PROCESS OF TRANSFERING HIMSELF INTO THE WHEELCHAIR. PT HAS NO COMPLAINTS/CONCERNS THIS MORNING, IS HOPING TO D/C EARLY THIS MORNING BUT UNDERSTANDS HE HAS TO WAIT FOR THE WHITEWASHER/MD TO SEE HIM. ALL QUESTIONS ANSWERED, CL IN REACH, SRX2,
[2019-03-13 08:32] VITALS: BP 130/63
--- NOTE | 2019-03-13 09:39 | NUR ---
PT REQUESTED KRUSE BE REMOVED, REMOVED KRUSE PER STERILE NURSING PROTOCOL, INSTRUCTED PT TO CALL ME WHENEVER HE URINATES FOR THE FIRST TIME. PT VERBALIZES UNDERSTANDING. CL IN REACH.
--- NOTE | 2019-03-13 10:11 | NUR ---
I have reviewed this patient and I concur with the Shift Assessment completed by the Licensed Practical Nurse today this shift.
[2019-03-13] MEDS ORDERED: LISINOPRIL10 MG PO (11:08)
[2019-03-13] MEDS ORDERED: METOPROLOL TART50 MG PO (11:08)
--- NOTE | 2019-03-13 12:14 | NUR ---
PT ESCORTED OUT VIA PERSONAL WHEELCHAIR TO DAUGHTERS POV.
--- NOTE | 2019-03-14 08:20 | MORECARE ---
CASE MANAGEMENT DISCHARGE SUMMARY PATIENT: GONZALEZ OLIVEIRA UNIT: [id number] ADM DATE: 03/09/19 AGE: 78 : 39 SEX: M ROOM/BED: D.2102 AUTHOR: PROSPER,DOC PHYSICIAN: REFERRING PHYSICIAN: RAMIRO LARES MD DATE OF SERVICE: 03/14/19 Discharge Plan Patient Name: GONZALEZ OLIVEIRA Facility: [facility]:[place] : 1940 Planned Disposition: Home Anticipated Discharge Date: 03/13/19 Discharge Date: 03/13/2019 Expected LOS: 4 Initial Reviewer: [email or web address] Initial Review Date: 03/10/2019 Generated: 03/14/19 9:20 am DCP- Discharge Planning Updated by [email or web address]: Moni Lin on 03/10/19 7:[address] Patient Name: GONZALEZ OLIVEIRA Admission Status: ER Accout number: [id number] Admission Date: 03-09-2019 : 1940 Admission Diagnosis:PNEUMONIA, UNSPECIFIED ORGANISM Attending: RAMIRO LARES Current LOS: 1 Anticipated DC Date: Planned Disposition: Home Primary Insurance: MEDICARE A & B Discharge Planning Comments: CM met with patient and spouse Alida at bedside after explaining CM role and obtaining verbal consent. Patient lives at home with his and plans to return there upon discharge. Patient feels this would be a safe discharge. Patient is a bilateral amputee. CM discussed availability / needs of home health and medical equipment. Patient denies any discharge needs at this time. Patient states he will have his drive him home upon discharge. CM will continue to follow and assist as needed with discharge planning / needs. Dry Cleaning Attendant: Moni Lin DCPIA - Discharge Planning Initial Assessment Updated by [email or web address]: Moni Lin on 03/10/19 7:57 pm * Is the patient Alert and Oriented? Yes * How many steps to enter\exit or inside your home? * PCP JULIA * Pharmacy [facility] - IN [place] * Preadmission Environment Home with Family * ADLs Independent * Other Equipment HOME 02 / PORTABLE, W/C, NEBULIZER, ELECTRIC W/C * List name and contact numbers for known caregivers / representatives who currently or will assist patient after discharge: ALIDA OLIVEIRA - - [phone] AMISHA OLIVEIRA -SON- [phone] * Verbal permission to speak to the caregivers and representatives has been obtained from the patient. Yes * Community resources currently utilized None * Additional services required to return to the preadmission environment? No * Can the patient safely return to the preadmission environment? Yes * Has this patient been hospitalized within the prior 30 days at any hospital? No Coverage Notice Reviewer: [email or web address] Renetta Rousseau Notice Issued Date-Time: 03/13/2019 12:30 Notice Type: IM Discharge Notice Notice Delivered To: Family Member Relationship to Patient: Son Sales Representative Supervisor Name: amisha oliveira Delivery Method: PHONE - Phone Yenny Days: Prior Verbal Notification: Recipient Understood Notice: Yes Recipient Signature: Yes Med Rec Note Co-signed by Attending: Coverage Notice Comment: Last DP export: 03/10/19 7:05 pm Patient Name: GONZALEZ OLIVEIRA Page [id number] at 0820 All edits/amendments must be made on the electronic document DICTATION DATE: 03/14/19819 BULK STATION OPERATOR: DIANA 03/14/19819 RPT#: [id number] DC DATE:03/13/19 STATUS: DIS IN [facility] [address] [place] [address] END OF REPORT
--- NOTE | 2019-03-14 13:55 | CN ---
PATIENT NAME:GONZALEZ OLIVEIRA MEDICAL RECORD: [id number] : 38 LOCATION:D. D.2107 ADMIT DATE: 03/09/19 ACCOUNT: [id number] CONSULTING PHYSICIAN: LYNNETTE PRUITT MD REFERRING PHYSICIAN: RAMIRO LARES MD DATE OF CONSULTATION: 03/10/2019 HISTORY OF PRESENT ILLNESS: A 78-year-old gentleman, known to me, with history of coronary artery disease, status post intervention. He has history of cardiomyopathy, admitted with respiratory distress, found to have cardiac enzymes. He was also found to have cardiomyopathy with EF of 25%. This admission was prompted by worsening respiratory distress, requiring intubation. He currently reports no dyspnea. We are asked to see him concerning his cardiovascular status. PAST MEDICAL HISTORY: Includes; 1. History of hypertension. 2. Buerger's disease, status post bilateral BKAs. 3. Obstructive pulmonary disease. 4. Coronary artery disease as described above. 5. Diabetes mellitus. ALLERGIES: PENICILLIN. MEDICATIONS: Typically, include Prilosec 20 daily, melatonin 6 mg at bedtime, insulin per scale, Percocet 10/325 one p.o. q. 4 p.r.n., morphine sulfate 50 mg q. 12, Neurontin 100 t.i.d., Celexa 20 daily, aspirin 81 daily, pravastatin 40 daily, and metoprolol 25 b.i.d. SOCIAL HISTORY: Unfortunately, he continues to smoke despite Buerger's disease and obstructive pulmonary disease. He does need assistance with his ADLs. REVIEW OF SYSTEMS: The patient reports easy bruising but reports no swollen glands. The patient reports no fever, no night sweats, no significant weight gain, no significant weight loss. No significant exercise tolerance. The patient reports no dry eyes, no irritation, no vision change. Patient reports no difficulty hearing and no ear pain. Patient reports no frequent nose bleeds or nose and sinus problems. Patient reports on arm pain on exertion. No shortness of breath while lying down. No history of heart murmur. Patient reports no cough, no wheezing or coughing up blood. Patient reports no abdominal pain, no vomiting. Normal appetite. No diarrhea and not vomiting blood. No nausea and no constipation. Patient reports no incontinence. No difficulty urinating. No hematuria. No increased frequency. Patient reports no muscle aches. No weakness, no arthralgias, no back pain. No swelling of the extremities. Patient reports no abnormal mole, no jaundice, no rashes. Reports no loss of consciousness. No weakness and no numbness. No seizures, dizziness, or headaches. The patient reports no depression, no sleep disturbance, feeling safe in a relationship and no alcohol abuse. Patient reports on fatigue. Reports no runny nose or sinus pressure. No itching, no hives, and no frequent sneezing. PHYSICAL EXAMINATION: GENERAL: This is an elderly gentleman, appears chronically ill, but in no acute distress, able to speak in full sentences at this point. VITAL SIGNS: Blood pressure 134/64. Pulse 64 and regular. CONSULT REPORT [id number] GONZALEZ OLIVEIRA HEENT: Normocephalic and atraumatic. NECK: No bruits noted. HEART: Tones are distant. Questionable S3 gallop is noted. LUNGS: Diminished breath sounds with prolonged expiratory phase and expiratory wheezes. ABDOMEN: Soft and nontender. EXTREMITIES: Show well-healed peripheral vascular surgery scars bilaterally. IMPRESSION: Cardiomyopathy. I suspect his cardiac enzyme elevation is secondary to demand ischemia. We will add Aldactone to his medical regime currently, and if this is tolerated, then we will add TATA and ARB at a later date. Further recommendations based on above. TRANSINT:[id number] Voice Confirmation ID: [id number] DOCUMENT ID: [id number] LYNNETTE PRUITT MD at 1355 CC: [id number] DICTATION DATE: 03/10/19 1448 ASSESSMENT CLINICIAN: 03/10/19 1601 DIS IN 03/13/19 [place] [id number] [place] [id number]
[2019-03-17 18:08] LABS: AEROBE ID Final report (()); RESULT 1 Serratia marcescens (())
[2019-05-01 12:08] LABS: ACID FAST CULTURE Negative (()); ACID FAST SMEAR Negative (())
== END 2019-03-13 12:15 | disposition home or self-care (01) | DRG 208 ==
LOC: D.ER 09:26 → D.ICU 13:03 → D.M2 03-12 14:54
PROVIDERS: Family Medicine; ADMIT Internal Medicine Nephrology; ATTEND Internal Medicine Nephrology
PROC: 5A1935Z Respiratory Ventilation, Less than 24 Consecutive Hours (ICD-10-PCS; principal; 2019-03-09)
PROC: 0BH17EZ Insertion of Endotracheal Airway into Trachea, Via Natural or Artificial Opening (ICD-10-PCS; 2019-03-09)
PROC: 0B9F8ZX Drainage of Right Lower Lung Lobe, Via Natural or Artificial Opening Endoscopic, Diagnostic (ICD-10-PCS; 2019-03-09)
PROC: 05H533Z Insertion of Infusion Device into Right Subclavian Vein, Percutaneous Approach (ICD-10-PCS; 2019-03-09)
DX: J18.9 Pneumonia, unspecified organism (principal); G93.41 Metabolic encephalopathy; J96.21 Acute and chronic respiratory failure with hypoxia; I42.9 Cardiomyopathy, unspecified; I50.22 Chronic systolic (congestive) heart failure; G93.1 Anoxic brain damage, not elsewhere classified; E11.9 Type 2 diabetes mellitus without complications; J43.9 Emphysema, unspecified; I25.10 Atherosclerotic heart disease of native coronary artery without angina pectoris; D64.9 Anemia, unspecified; I73.9 Peripheral vascular disease, unspecified

== ENCOUNTER 2019-04-24 14:38 | Inpatient (IN) | payer MEDICARE, OTHER ==
[~2019-04-24] VITALS: Ht 157.5 cm; Wt 65.5 kg
[2019-04-24] VITALS (7 sets, daily range): BP systolic 107–151; BP diastolic 54–77; BMI 24.7
[~2019-04-24 14:38] MED LIST changes: +LISINOPRIL10 MG PO; +METOPROLOL TART50 MG PO
[2019-04-24 15:13] LABS: BASOPHILS 0.2 % (0-2); EOSINOPHILS 0.7 % (0-7); HEMATOCRIT 36.1 % (42.0-54.0); HEMOGLOBIN 11.8 g/dL (13.5-17.5); IMMATURE GRANULOCYTES 0.6 % (0-5); LYMPHOCYTES 8.7 % (15-50); MCH 27.9 pg (26.0-34.0); MCHC 32.7 g/dL (31.0-37.0); MCV 85.3 fL (80.0-100.0); MEAN PLATELET VOLUME 9.6 fL (7.4-10.4); MONOCYTES 14.1 % (2-11); NEUTROPHILS 75.7 % (40-80); RBC 4.23 10x6/uL (4.20-6.10); RDW 15.3 % (11.5-14.5); WBC 13.9 10x3/uL (4.8-10.8)
[2019-04-24 15:31] LABS: PLATELET COUNT 203 10x3/uL (130-400)
[2019-04-24 15:44] LABS: ALBUMIN 3.3 g/dL (3.4-5.0); ALKALINE PHOSPHATASE 151 U/L (46-116); ALT (SGPT) 47 U/L (10-68); BILIRUBIN - TOTAL 0.63 mg/dL (0.2-1.3); CALC OSMOLALITY 273 mosm/kg (275-300); CARBON DIOXIDE 32.3 mmol/L (21.0-32.0); CHLORIDE - SERUM 101 mmol/L (98-107); CREATININE - SERUM 0.8 mg/dL (0.6-1.3); POTASSIUM - SERUM 4.7 mmol/L (3.5-5.1); PROTEIN - SERUM 5.9 g/dL (6.4-8.2); SODIUM 136 mmol/L (136-145); UREA NITROGEN 16 mg/dL (7-18); eGFR NON AFRICAN AMERICAN > 90 mL/min (90-120)
[2019-04-24 15:45] LABS: APPEARANCE CLEAR (CLEAR); BILIRUBIN NEGATIVE (NEGATIVE); COLOR YELLOW (YELLOW); GLUCOSE 100 mg/dL (NEGATIVE); KETONE NEGATIVE (NEGATIVE); NITRITE NEGATIVE (NEGATIVE); PROTEIN NEGATIVE (NEGATIVE); SPECIFIC GRAVITY 1.015 (1.005-1.020); UROBILINOGEN NORMAL (NORMAL)
--- NOTE | 2019-04-24 15:45 | NUR ---
URINE SENT TO THE LAB
[2019-04-24 15:46] LABS: GLUCOSE 109 mg/dL (74-106)
[2019-04-24 15:55] LABS: CKMB 3.7 U/L (0.0-3.6); CREATINE KINASE 49 UL (21-232)
[2019-04-24 16:04] LABS: TROPONIN-I < 0.017 ng/mL (0.000-0.060)
--- NOTE | 2019-04-24 17:16 | MORECARE ---
CASE MANAGEMENT DISCHARGE SUMMARY PATIENT: GONZALEZ OLIVEIRA UNIT: [id number] ADM DATE: 04/24/19 AGE: 78 : 39 SEX: M ROOM/BED: D.2201 AUTHOR: UBALDO CHENG PHYSICIAN: REFERRING PHYSICIAN: RAMIRO LARES MD DATE OF SERVICE: 04/24/19 Discharge Plan Patient Name: GONZALEZ OLIVEIRA Facility: [facility]:[place] : 1940 Planned Disposition: Home Anticipated Discharge Date: 04/26/19 Discharge Date: Expected LOS: 2 Initial Reviewer: [email or web address] Initial Review Date: 04/24/2019 Generated: 04/24/19 6:16 pm Patient Name: GONZALEZ OLIVEIRA Page [id number] at 1716 All edits/amendments must be made on the electronic document DICTATION DATE: 04/24/191714 LABORATORY ANIMAL CARETAKER: DIANA 04/24/191714 RPT#: [id number] DC DATE: STATUS: ADM IN [facility] [address] [place] [address] END OF REPORT
--- NOTE | 2019-04-24 17:22 | MORECARE ---
CASE MANAGEMENT DISCHARGE SUMMARY PATIENT: GONZALEZ OLIVEIRA UNIT: [id number] ADM DATE: 04/24/19 AGE: 78 : 39 SEX: M ROOM/BED: D.2201 AUTHOR: UBALDO CHENG PHYSICIAN: REFERRING PHYSICIAN: RAMIRO LARES MD DATE OF SERVICE: 04/24/19 Discharge Plan Patient Name: GONZALEZ OLIVEIRA Facility: [facility]:[place] : 1940 Planned Disposition: Home Anticipated Discharge Date: 04/26/19 Discharge Date: Expected LOS: 2 Initial Reviewer: [email or web address] Initial Review Date: 04/24/2019 Generated: 04/24/19 6:22 pm DCPIA - Discharge Planning Initial Assessment Updated by [email or web address]: Savanah Fernandez on 04/24/19 5:17 pm * Is the patient Alert and Oriented? Yes * How many steps to enter\exit or inside your home? ramp * PCP [facility] Oneil [facility] * Pharmacy [facility] * Preadmission Environment Home with Family * ADLs Partial Dependent * Partial ADLs (Assistance needed) Ambulation Dressing Transfers * Equipment Oxygen Power Chair or Electric Scooter Wheelchair * Other Equipment Urinal * List name and contact numbers for known caregivers / representatives who currently or will assist patient after discharge: Shanna Oliveira - - [phone] Yeyo Oliveira - son [phone] * Verbal permission to speak to the caregivers and representatives has been obtained from the patient. Yes * Community resources currently utilized Private Duty Care * Please name any agencies selected above. live in that assists him for room/board. * Additional services required to return to the preadmission environment? Yes * Can the patient safely return to the preadmission environment? Yes * Has this patient been hospitalized within the prior 30 days at any hospital? No Last DP export: 04/24/19 4:16 p Patient Name: GONZALEZ OLIVEIRA Page [id number] at 5932 All edits/amendments must be made on the electronic document DICTATION DATE: 04/24/191721 MICROSOFT EXCHANGE ARCHITECT: DIANA 04/24/191721 RPT#: [id number] DC DATE: STATUS: ADM IN [facility] [address] [place] [address] END OF REPORT
--- NOTE | 2019-04-24 17:29 | MORECARE ---
CASE MANAGEMENT DISCHARGE SUMMARY PATIENT: GONZALEZ OLIVEIRA UNIT: [id number] ADM DATE: 04/24/19 AGE: 78 : 39 SEX: M ROOM/BED: D.2201 AUTHOR: PROSPER,DOC PHYSICIAN: REFERRING PHYSICIAN: RAMIRO LARES MD DATE OF SERVICE: 04/24/19 Discharge Plan Patient Name: GONZALEZ OLIVEIRA Facility: [facility]:[place] : 1940 Planned Disposition: Home Anticipated Discharge Date: 04/26/19 Discharge Date: Expected LOS: 2 Initial Reviewer: [email or web address] Initial Review Date: 04/24/2019 Generated: 04/24/19 6:29 pm DCP- Discharge Planning Updated by [email or web address]: Savanah Fernandez on 04/24/19 4:[address] DC PLAN: Return home with at dc. ANTICIPATED DC NEEDS: Used [facility] in past. If HH ordered at dc wants to use [facility] again. CM met with patient, his ,his son, and his daughter in law to complete initial dc planning assessment. CM educated patient on the CM role and verbal consent given by patient to complete assessment. CM verified patient's address, phone number, and emergency contact phone numbers. Patient lives at home with his and a cg that lives with them that assists. They stated the cg needed a place to live so they let him live there for his assistance. At discharge patient plans to return home and feels this is a safe discharge. CM discussed availability of home health, rehab services, and medical equipment. Patient's stated he has had [facility] in the past and if HH is ordered at dc they would like to use [facility] again. LUPILLO signed by patient's for [facility]. Signed form placed on chart. Patient reports his or son will transport him home at time of discharge. CM will continue to follow and will assist as needed with dc plans/needs. Savanah Fernandez RN, [facility] DCPIA - Discharge Planning Initial Assessment Updated by [email or web address]: Savanah Fernandez on 04/24/19 5:17 pm * Is the patient Alert and Oriented? Yes * How many steps to enter\exit or inside your home? ramp * PCP Dr. Clarice Sanchez * Pharmacy [facility] in [place] * Preadmission Environment Home with Family * ADLs Partial Dependent * Partial ADLs (Assistance needed) Ambulation Dressing Transfers * Equipment Oxygen Power Chair or Electric Scooter Wheelchair * Other Equipment Urinal * List name and contact numbers for known caregivers / representatives who currently or will assist patient after discharge: Shanna Oliveira - - [phone] Yeyo Oliveira - son - [phone] * Verbal permission to speak to the caregivers and representatives has been obtained from the patient. Yes * Community resources currently utilized Private Duty Care * Please name any agencies selected above. live in that assists him for room/board. * Additional services required to return to the preadmission environment? Yes * Can the patient safely return to the preadmission environment? Yes * Has this patient been hospitalized within the prior 30 days at any hospital? No Last DP export: 04/24/19 4:22 p Patient Name: GONZALEZ OLIVEIRA Page [phone] at 1729 All edits/amendments must be made on the electronic document DICTATION DATE: 04/24/191728 FUNERAL PLANNING COUNSELOR: DIANA 04/24/191728 RPT#: [id number] DC DATE: STATUS: ADM IN [facility] [address] [place] [address] END OF REPORT
[2019-04-24] MEDS ORDERED: KLONOPIN0.5 MG PO (18:04)
--- NOTE | 2019-04-24 18:04 | NUR ---
DAWOOD OLIVEIRA THE SON OF PATIENT HAS STARTED KLONOPIN. SAID HE WAS PRESCRIBED ON THE IT WAS FILLED. THERE WAS 10 PILLS IN THE BOTTLE AND THERE ARE ONLY 3 REMAINING.
--- NOTE | 2019-04-24 20:00 | NUR ---
PT ACCIDENTALLY PULLED OUT LEFT HAND IV. AFTER SEVERAL FAILED ATTEMPTS BY NURSES TO RESITE IV, ICU NURSE RESITED 24G IV TO RIGHT HAND. PT REFUSES TO WEAR GOWN. NO SCD'S FOR DUE TO BILAT AMPUTEE. FSBS 320 - 8 UNITS INSULIN PER SS. NO OTHE R NEEDS. WILL CONTINUE TO MONITOR.
[2019-04-25] VITALS: BP 108/67
[2019-04-25 04:00] VITALS: BP 181/76
[2019-04-25 05:27] LABS: BASOPHILS 0.1 % (0-2); EOSINOPHILS 0 % (0-7); HEMATOCRIT 32.8 % (42.0-54.0); HEMOGLOBIN 10.6 g/dL (13.5-17.5); IMMATURE GRANULOCYTES 0.7 % (0-5); LYMPHOCYTES 2.1 % (15-50); MCH 27.2 pg (26.0-34.0); MCHC 32.3 g/dL (31.0-37.0); MCV 84.3 fL (80.0-100.0); MEAN PLATELET VOLUME 10.4 fL (7.4-10.4); NEUTROPHILS 95.1 % (40-80); PLATELET COUNT 187 10x3/uL (130-400); RBC 3.89 10x6/uL (4.20-6.10); RDW 15.5 % (11.5-14.5)
[2019-04-25 05:46] LABS: CALC OSMOLALITY 285 mosm/kg (275-300); CALCIUM 7.9 mg/dL (8.5-10.1); CARBON DIOXIDE 24.7 mmol/L (21.0-32.0); CHLORIDE - SERUM 98 mmol/L (98-107); CREATININE - SERUM 0.8 mg/dL (0.6-1.3); POTASSIUM - SERUM 4.8 mmol/L (3.5-5.1); SODIUM 134 mmol/L (136-145); UREA NITROGEN 17 mg/dL (7-18); eGFR NON AFRICAN AMERICAN > 90 mL/min (90-120)
[2019-04-25 05:47] LABS: WBC 10.2 10x3/uL (4.8-10.8)
[2019-04-25 05:55] LABS: GLUCOSE 388 mg/dL (74-106)
[2019-04-25 07:59] VITALS: BP 160/85
[2019-04-25 09:19] VITALS: Ht 157.5 cm; Wt 65.5 kg
[2019-04-25 12:45] VITALS: BP 139/60
[2019-04-25 15:37] VITALS: BP 155/86
--- NOTE | 2019-04-25 18:33 | NUR ---
I have reviewed this patient and I concur with the Shift Assessment completed by the Licensed Practical Nurse today this shift.
--- NOTE | 2019-04-25 19:35 | NUR ---
OT NOTE: PT COMPLETED BED MOB TASKS WITH SBA. PT COMPLETED UE AROM AXS. PT TOLERATED THERAPY WELL. THANK YOU, CORIN RICHARDS
[2019-04-25 19:54] VITALS: BP 109/79
--- NOTE | 2019-04-25 20:18 | NUR ---
rec'd in bed sitting position watching tv.02 2l nc o2 sats 97% c/o some sob on moving around in bed.no resp.distress or difficulty observed.will continue to monitor for any chges in resp. status and follow current plan of care.
[2019-04-26] VITALS (15 sets, daily range): BP systolic 93–151; BP diastolic 54–825
--- NOTE | 2019-04-26 02:20 | NUR ---
I have reviewed this patient and I concur with the Shift Assessment completed by the Licensed Practical Nurse today this shift.
[2019-04-26 06:24] LABS: BASOPHILS 0.1 % (0-2); EOSINOPHILS 0.1 % (0-7); HEMATOCRIT 35.6 % (42.0-54.0); HEMOGLOBIN 11.7 g/dL (13.5-17.5); MCH 27.5 pg (26.0-34.0); MCHC 32.9 g/dL (31.0-37.0); MCV 83.6 fL (80.0-100.0); MONOCYTES 11.5 % (2-11); NEUTROPHILS 78.3 % (40-80); RBC 4.26 10x6/uL (4.20-6.10); RDW 15.7 % (11.5-14.5)
[2019-04-26 06:31] LABS: PLATELET COUNT 254 10x3/uL (130-400); WBC 19.7 10x3/uL (4.8-10.8)
[2019-04-26 07:05] LABS: ALBUMIN 3.3 g/dL (3.4-5.0); ALKALINE PHOSPHATASE 220 U/L (46-116); BILIRUBIN - TOTAL 0.58 mg/dL (0.2-1.3); CALCIUM 8.1 mg/dL (8.5-10.1); CARBON DIOXIDE 23.4 mmol/L (21.0-32.0); CHLORIDE - SERUM 100 mmol/L (98-107); POTASSIUM - SERUM 4.6 mmol/L (3.5-5.1); SODIUM 137 mmol/L (136-145); eGFR NON AFRICAN AMERICAN 76 mL/min (90-120)
[2019-04-26 07:11] LABS: ALT (SGPT) 124 U/L (10-68); CALC OSMOLALITY 274 mosm/kg (275-300); GLUCOSE 30 mg/dL (74-106); UREA NITROGEN 26 mg/dL (7-18)
--- NOTE | 2019-04-26 08:30 | NUR ---
PT O2 SAT 88, PT DISROBING, NO VERBAL RESPONSE TO QUESTIONS. RAPID CALLED. FSBS 82. DR AWAD NOTIFIED.
--- NOTE | 2019-04-26 08:45 | NUR ---
0630 FSBS 43 NON SYMPTOMATIC. RECHECKED 0636 31 LAB CALLED FOR STAT GLUCOSE. 0640 YANET CALLED NEW ORDERS REC'DAMP D5 GIVEN IV. 80 02 SATS 95% AT 3L NC FSBS 0658 207 COLOR REMAINS SMOKEY WHITESIDE SOME WHAT DISORIENTED BUT RESPONDS TO VERBAL STIMULI WILL CONTINUE TO MONITOR FOR ANY CHGES. AND FOLLOW CURRENT PLAN OF CARE
--- NOTE | 2019-04-26 09:10 | NUR ---
FSBS 52, 25 ML D50 GIVEN PER ORDERS, WILL MONITOR. D5W RUNNING AT 50 TO RIGHT HAND 24G.
--- NOTE | 2019-04-26 09:45 | NUR ---
FSBS 90, WILL MONITOR.
--- NOTE | 2019-04-26 10:12 | NUR ---
FSBS 61, WILL MONITOR.
--- NOTE | 2019-04-26 10:41 | NUR ---
FSBS 49, 50 ML D50 GIVEN PER ORDERS, D5W CHANGED TO 150ML/HR PER ORDERS. WILL MONITOR.
--- NOTE | 2019-04-26 11:22 | NUR ---
FSBS 154, D5W RUNNING AT 150. BELLO KAY APRN ORDERED SECOND IV ACCESS.
--- NOTE | 2019-04-26 12:52 | NUR ---
FSBS 134, D5W SLOWED TO 75 ML/HR
--- NOTE | 2019-04-26 13:30 | NUR ---
REC'D VIA BED WITH HOSPITAL PERSONNEL X2, AWAKE AND CONFUSED, O2 VAI NC AT 6L, CONNECTED TO ICU MONITORS, VSS, DENIES PAIN, NOTED AKA, AND BKA, ASSESSMENT COMPLETED PER FLOWSHEET, REPOSITONED IN BED, TO BACK, NOTED DYSPNEA WITH FREQUENT COUGHING, CALL LIGHT IN REACH, NO NEEDS AT THIS TIME
--- NOTE | 2019-04-26 14:00 | NUR ---
DR FORD HERE FOR EVAL, NEW ORDERS GIVEN
--- NOTE | 2019-04-26 15:00 | NUR ---
REPEAT FSBS 110 WILL CONTINUE TO MONITOR
--- NOTE | 2019-04-26 16:15 | NUR ---
FSBS 127, SANDWICH TRAY TO BEDSIDE, NO OTHER NEEDS AT THIS TIME
--- NOTE | 2019-04-26 18:15 | NUR ---
KRUSE CATHETER PLACE PER ORDER, 500 CC STRAW DRAINAGE TO BAG, TOLERATED WITHOUT DIFFICULTY, SIZE 16 FR
--- NOTE | 2019-04-26 19:00 | NUR ---
SHIFT ASSESSMENT COMPLETE. S1S2 AUDIBLE, HR 107 SINUS TACH SHOWING ON MONITOR. RR SHALLOW, CRACKLES HEARD BILAT THROUGHOUT ALL LOBES. NC ON @ 4L/MIN. ABD DISTENDED, BS HYPOACTIVE X4. R HAND PIV S/L. R UPPER ARM PIV INFUSING D5W @ 25 ML/HR. GENERALIZED BRUISING NOTED. SKIN THIN. L AKA, R BKA, SCARS AND REDNESS NOTED. REPOSITIONED IN BED, CALL LIGHT IN REACH, BED IN LOWEST POSITION. A&O X4 WITH NO COMPLAINTS OF PAIN OR DISCOMFORT. SNACK PROVIDED. WILL CONT WITH POC.
--- NOTE | 2019-04-26 21:00 | NUR ---
NO VISITORS AT BEDSIDE. FSBS 330, 8 UN HUMALOG ADMIN PER SLIDING SCALE. REPOSITIONED FOR COMFORT. NO NEEDS AT THIS TIME. VSS. WILL CONT TO MONITOR.
--- NOTE | 2019-04-26 22:00 | NUR ---
PT STATED THAT HIS PAIN MEDICINE AT HOME WORKS BETTER THAN THE MEDICATION HE IS RECIEVING HERE FOR PAIN. STATED THAT HE USUALLY TAKES HYDROCODONE. INFORMED YANET ALARCON APN. NEW ORDERS RECIEVED. WILL CONT WITH POC.
--- NOTE | 2019-04-26 23:00 | NUR ---
REASSESSMENT COMPLETE. O2 VIA NC TITRATED TO 3L/MIN. HS SNACK PROVIDED. REPOSITIONED FOR COMFORT. VSS. CALL LIGHT IN REACH, BED ALARM ON.
[2019-04-27] VITALS (24 sets, daily range): BP systolic 117–155; BP diastolic 59–89
--- NOTE | 2019-04-27 01:00 | NUR ---
BIPAP ON, 20/02 @ 40%. PT TOLERATING WELL. DENTURES PLACED IN CUP WITH THERMODYNAMICS TEACHER ON BEDSIDE TABLE. REPOSITIONED FOR COMFORT. HE DENIES ANY PAIN AT THIS TIME. WILL CONT WITH POC.
--- NOTE | 2019-04-27 03:00 | NUR ---
REASSESSMENT COMPLETE. NO CHANGES IN PT CONDITION. VSS. CALL LIGHT IN REACH. SEE FLOWSHEET FOR FURTHER DETAILS. WILL CONT WITH POC.
--- NOTE | 2019-04-27 04:00 | NUR ---
PT'S SON AT BEDSIDE. UPDATE GIVEN. NO FURTHER NEEDS AT THIS TIME.
[2019-04-27 04:27] LABS: BASOPHILS 0 % (0-2); EOSINOPHILS 0.2 % (0-7); HEMATOCRIT 36.2 % (42.0-54.0); HEMOGLOBIN 11.7 g/dL (13.5-17.5); IMMATURE GRANULOCYTES 0.6 % (0-5); LYMPHOCYTES 5.6 % (15-50); MCH 26.7 pg (26.0-34.0); MCHC 32.3 g/dL (31.0-37.0); MCV 82.6 fL (80.0-100.0); MEAN PLATELET VOLUME 9.8 fL (7.4-10.4); MONOCYTES 6.7 % (2-11); NEUTROPHILS 86.9 % (40-80); PLATELET COUNT 269 10x3/uL (130-400); RBC 4.38 10x6/uL (4.20-6.10); RDW 15.6 % (11.5-14.5); WBC 14.9 10x3/uL (4.8-10.8)
[2019-04-27 04:56] LABS: ALBUMIN 2.9 g/dL (3.4-5.0); ALKALINE PHOSPHATASE 171 U/L (46-116); ALT (SGPT) 98 U/L (10-68); BILIRUBIN - TOTAL 0.59 mg/dL (0.2-1.3); CALCIUM 7.8 mg/dL (8.5-10.1); CHLORIDE - SERUM 97 mmol/L (98-107); CREATININE - SERUM 0.9 mg/dL (0.6-1.3); PROTEIN - SERUM 5.8 g/dL (6.4-8.2); SODIUM 136 mmol/L (136-145); UREA NITROGEN 24 mg/dL (7-18); eGFR NON AFRICAN AMERICAN 86 mL/min (90-120)
[2019-04-27 05:06] LABS: CALC OSMOLALITY 271 mosm/kg (275-300); CARBON DIOXIDE 35.2 mmol/L (21.0-32.0); GLUCOSE 33 mg/dL (74-106); POTASSIUM - SERUM 3.9 mmol/L (3.5-5.1)
--- NOTE | 2019-04-27 05:50 | NUR ---
CRITICAL LAB CALLED BACK, GLUCOSE 33. HYPOGLYCEMIC PROTOCOL INITIATED.
--- NOTE | 2019-04-27 09:39 | NUR ---
Nutrition follow-up: Pt now in ICU s/p rapid response due to hypoglycemia Pt continues with hypoglycemia this am Diet: Consistent CHO PO intake ~50% average of meals Labs reviewed Wt: 135# Recommend changing diet order to regular as tolerated due to low glucose and to encourage pt to eat more at meals. RDN following.
--- NOTE | 2019-04-27 11:00 | NUR ---
RESTING WATHCING TV, NO SIGNS OF DISTRESS, NO ACUTE CHANGE FROM PREVIOUS ASSESSMENT, VSS
--- NOTE | 2019-04-27 19:00 | NUR ---
PT REPORT RECEIVED FROM DAY SHIFT NURSE. VSS. WILL CONTINUE TO MONITOR
--- NOTE | 2019-04-27 21:00 | NUR ---
PT BLOOD SUGAR CHECKED RESULTED 431. BLOOD SUGAR RECHECKED RESULTED 396. GAVE 10 UNITS. VSS. WILL CONTINUE TO MONITOR
--- NOTE | 2019-04-27 23:00 | NUR ---
PT REASSESSMENT PERFORMED. VSS. BACK ON BIPAP. WILL CONTINUE TO MONITOR
--- NOTE | 2019-04-27 23:30 | NUR ---
REPORT RECEIVED FROM RAFFAELE DENTON, ASSESSMENT COMPLET, PT AAOx4 ON BIPAP, ANSWERES ALL QUESTIONS, RT UPPER ARM PIV INFILTRATED, INSERTED 20g PIV IN LEFT FA, PLACEMENT VERIFIED WITH BLOOD RETURN AND FLUSHED WITH 10ML NS, INITIALED AND DATED DRSG, PT TOLLERATED WELL, VSS, NO ACUTE DISTRESS NOTED, WILL CONTINUE TO MONITOR
--- NOTE | 2019-04-27 23:30 | NUR ---
PT REPORT GIVEN TO MIA. HE IS TAKING OVER CARE. VSS.
[2019-04-28] VITALS (14 sets, daily range): BP systolic 118–153; BP diastolic 63–701
--- NOTE | 2019-04-28 | NUR ---
SANDWICH WITH FRUIT CUP GIVEN TO PT PER REQUEST, BIPAP REMOVED AND PLACED ON 4L/MIN NC, PT TOLLERATING WELL, NO S/S OF ACUTE DISTRESS, WILL CONT TO MONITOR
--- NOTE | 2019-04-28 01:00 | NUR ---
PT PLACED BACK ON BIPAP AFTER 100% OF SANDWICH AND FRUIT EATEN, PT TOLLERATING WELL, VSS, NO DISTRESS NOTED, WILL CONTINUE TO MONITOR
[2019-04-28 04:31] LABS: BASOPHILS 0 % (0-2); EOSINOPHILS 0 % (0-7); HEMATOCRIT 37.4 % (42.0-54.0); HEMOGLOBIN 12.5 g/dL (13.5-17.5); IMMATURE GRANULOCYTES 0.5 % (0-5); LYMPHOCYTES 3.4 % (15-50); MCH 27.1 pg (26.0-34.0); MCHC 33.4 g/dL (31.0-37.0); MEAN PLATELET VOLUME 10.3 fL (7.4-10.4); MONOCYTES 6.2 % (2-11); NEUTROPHILS 89.9 % (40-80); PLATELET COUNT 233 10x3/uL (130-400); RBC 4.62 10x6/uL (4.20-6.10); RDW 15.4 % (11.5-14.5); WBC 12.1 10x3/uL (4.8-10.8)
--- NOTE | 2019-04-28 04:41 | NUR ---
YANET FITCH PAGED R/T ELEVATED FSBG 392
--- NOTE | 2019-04-28 04:44 | NUR ---
YANET FITCH CALLED ICU, UPDATE GIVEN ON PT, ORDERS RECEIVED TO GIVE 5UNITS HUMOLOG AND RECHECK FSBG IN 2 HOURS
[2019-04-28 05:00] LABS: ALBUMIN 2.9 g/dL (3.4-5.0); ANION GAP 10.1 mmol/L (8-16); BILIRUBIN - TOTAL 0.88 mg/dL (0.2-1.3); CALCIUM 7.6 mg/dL (8.5-10.1); CARBON DIOXIDE 32.8 mmol/L (21.0-32.0); MAGNESIUM - SERUM 1.8 mg/dL (1.8-2.4); PHOSPHOROUS 3.2 mg/dL (2.5-4.9); POTASSIUM - SERUM 3.9 mmol/L (3.5-5.1); PROTEIN - SERUM 5.8 g/dL (6.4-8.2)
[2019-04-28 05:02] LABS: CREATININE - SERUM 1.2 mg/dL (0.6-1.3)
--- NOTE | 2019-04-28 11:40 | NUR ---
0700 AWAKE ALERT SITTING UP ON BEDSIDE ASKING FOR BREAKFAST VOICES NO COMPLAINTS ASSESSMENT COMPLETE
--- NOTE | 2019-04-28 11:41 | NUR ---
0900 APPPETITE GOOD REPOSITIONS SELF IN BED
--- NOTE | 2019-04-28 11:41 | NUR ---
1100 CONTINUE TO REFUSE CHG BATH STATING HE WILL TAKE SHOWER WHEN TANFERRED TO MEDICAL FLOOR
--- NOTE | 2019-04-28 14:28 | NUR ---
8288 APPETITE GOOD SPOUSE AT BEDSIDE
--- NOTE | 2019-04-28 14:28 | NUR ---
1415 REPORT CALLED TO JOANN ON MS
--- NOTE | 2019-04-28 14:29 | NUR ---
1428 TRANSPORTED VIA WC TO ROOM 2240 WITHOUT COMPLICATIONS
--- NOTE | 2019-04-28 15:18 | NUR ---
RECEIVED TO ROOM 2240 VIA WC FROM ICU. A/O X3. NO C/O AT THIS TIME. WANTS PAIN MEDS CHANGED TO HOME DOSE. SPOKE WITH WILFRDE BRANTLY, NEW ORDERS RECEIVED. SKIN IS INTACT WITHOUT REDNESS. AT BEDSIDE. DENIES NEEDS.
--- NOTE | 2019-04-28 19:10 | NUR ---
BEDSIDE REPORT RECEIVED AND CARE OF PT ASSUMED. PT LYING IN LOW BORJAS'S POSITION WATCHING TV. IV TO LEFT FA PATENT WITH NS INFUSING AT KVO. O2 ORDERED AT 4L...OFF RIGHT NOW...REPLACED AND REMINDED PT OF HOW IMPORTANT IT IS TO WEAR. WILL MONITOR FOR NEEDS.
--- NOTE | 2019-04-28 19:24 | NUR ---
REQUESTED AND GIVNE 15MG OXY PO FOR C/O "FOOT" NPAIN LEVEL 10. WILL MONITOR. ATE ALL OF SUPPER. KRUSE UNCLAMPED AND RETURNED 300CC CLEAR YELLOW URINE. RECLAMPED AT THIS TIME. DENIES NEEDS.
--- NOTE | 2019-04-28 21:29 | NUR ---
HS MEDICATIONS GIVEN. WILL CONTINUE TO MONITOR FOR NEEDS.
--- NOTE | 2019-04-28 21:30 | NUR ---
FSBS 443 THIS CHECK. GAVE INSULIN 12 ML PER SLIDING SCALE.
[2019-04-29 01:31] VITALS: BP 152/62
[2019-04-29 05:54] VITALS: BP 118/61
[2019-04-29 06:05] LABS: BASOPHILS 0 % (0-2); EOSINOPHILS 0 % (0-7); HEMATOCRIT 39.9 % (42.0-54.0); HEMOGLOBIN 13.3 g/dL (13.5-17.5); IMMATURE GRANULOCYTES 0.5 % (0-5); LYMPHOCYTES 3.9 % (15-50); MCH 26.9 pg (26.0-34.0); MCHC 33.3 g/dL (31.0-37.0); MCV 80.8 fL (80.0-100.0); MEAN PLATELET VOLUME 9.9 fL (7.4-10.4); MONOCYTES 5.9 % (2-11); NEUTROPHILS 89.7 % (40-80); PLATELET COUNT 190 10x3/uL (130-400); RBC 4.94 10x6/uL (4.20-6.10); RDW 15.3 % (11.5-14.5); WBC 12.8 10x3/uL (4.8-10.8)
[2019-04-29 06:20] LABS: ALBUMIN 2.9 g/dL (3.4-5.0); ALKALINE PHOSPHATASE 136 U/L (46-116); ALT (SGPT) 56 U/L (10-68); BILIRUBIN - TOTAL 0.86 mg/dL (0.2-1.3); CALCIUM 7.9 mg/dL (8.5-10.1); CARBON DIOXIDE 33.4 mmol/L (21.0-32.0); CHLORIDE - SERUM 95 mmol/L (98-107); CREATININE - SERUM 0.9 mg/dL (0.6-1.3); GLUCOSE 319 mg/dL (74-106); MAGNESIUM - SERUM 1.7 mg/dL (1.8-2.4); PHOSPHOROUS 3.1 mg/dL (2.5-4.9); POTASSIUM - SERUM 3.5 mmol/L (3.5-5.1); PROTEIN - SERUM 5.4 g/dL (6.4-8.2); SODIUM 133 mmol/L (136-145); eGFR NON AFRICAN AMERICAN 86 mL/min (90-120)
[2019-04-29 06:21] LABS: CALC OSMOLALITY 286 mosm/kg (275-300); UREA NITROGEN 39 mg/dL (7-18)
--- NOTE | 2019-04-29 08:00 | NUR ---
AWAKE AND ALERT. ORIENTED X3. NO C/O AT THIS TIME. LUNGS HAVE WHEEZES IN LEFT LOBES, PATIENT DENIES PRODUCTIVE COUGH.SKIN IS INTACT WITHOUT REDNESS. IV TO LEFT FOREARM IS PATENT WITHOUT REDNESS AT INSERTION SITE. VOIDED 325 CC CLEAR YELLOW URINE. DENIES NEEDS.
--- NOTE | 2019-04-29 10:00 | NUR ---
VOIDED 200CC CLEAR YELLOW URINE INTO URINAL. DENIES NEEDS.
--- NOTE | 2019-04-29 12:00 | NUR ---
FSBS 314. GIVEN 12 UNITS HUMALOG SUBQ PER SS. DENIES NEEDS.
--- NOTE | 2019-04-29 13:00 | NUR ---
WORKED WITH THERAPY. UP IN CHIAR TOOLING AROUND THE UNIT. DENIES NEEDS.
--- NOTE | 2019-04-29 13:22 | NUR ---
NUTRITION F/U CHART REVIEWED, PT VISIT. IN WHEELCHAIR IN DOORWAY OF ROOM. ASKING ~ DISCHARGE. PT REPORTS GOOD INTAKE DIABETIC DIET. WILL CONTINUE TO MONITOR PT PO INTAKE, PROGRESS. RD FOLLOWING
--- NOTE | 2019-04-29 17:29 | NUR ---
FSBS IS 444. GIVEN 12 UNITS HUMALOG SUBQ PER SS. PATIENT HAD JUST EATEN GHRAM CRACKERS AND PEANUT BUTTER. WILL RECHECK IN ONE HOUR.
--- NOTE | 2019-04-29 18:30 | NUR ---
FSBS 479. YANET FITCH NOTIFIED OF SAME. NEW ORDERS RECEIVED. WILL CONTINUE TO MONITOR.
[2019-04-29 20:30] VITALS: BP 153/75
[2019-04-30 05:54] LABS: ALKALINE PHOSPHATASE 130 U/L (46-116); ALT (SGPT) 53 U/L (10-68); BILIRUBIN - TOTAL 0.72 mg/dL (0.2-1.3); CALCIUM 7.9 mg/dL (8.5-10.1); CARBON DIOXIDE 33.4 mmol/L (21.0-32.0); CHLORIDE - SERUM 99 mmol/L (98-107); POTASSIUM - SERUM 3.6 mmol/L (3.5-5.1); SODIUM 138 mmol/L (136-145); UREA NITROGEN 41 mg/dL (7-18); eGFR NON AFRICAN AMERICAN 76 mL/min (90-120)
[2019-04-30 05:56] LABS: CALC OSMOLALITY 285 mosm/kg (275-300); GLUCOSE 92 mg/dL (74-106)
[2019-04-30 05:58] LABS: HEMATOCRIT 42.8 % (42.0-54.0); HEMOGLOBIN 14.4 g/dL (13.5-17.5); MCH 27.3 pg (26.0-34.0); MCHC 33.6 g/dL (31.0-37.0); MCV 81.1 fL (80.0-100.0); MEAN PLATELET VOLUME 10.1 fL (7.4-10.4); PLATELET COUNT 243 10x3/uL (130-400); RBC 5.28 10x6/uL (4.20-6.10); RDW 15.5 % (11.5-14.5); WBC 26.6 10x3/uL (4.8-10.8)
[2019-04-30 07:43] LABS: EOSINOPHILS 1 % (0-7); LYMPHOCYTES 10 % (15-50); MONOCYTES 5 % (2-11); NEUTROPHILS 80 % (40-80); PLATELET ESTIMATE NORMAL; PLATELET MORPHOLOGY GIANT PLTS PRESENT
--- NOTE | 2019-04-30 08:13 | NUR ---
AAOX4. ASSISTED PT OFF THE TOILET WITH SLIDING BOARD X2 ASSIST. NO S/S OF ACUTE DISTRESS. CL IN PLACE./
--- NOTE | 2019-04-30 12:24 | NUR ---
DIRECTOR PATIENT ACCOUNTING REPORTS A BP 64/35. RECHECK 77/40. SPOKE WITH CARISSA VU. VO 500ML NS BOLUS X1. HOLD BP MED AND LASIX. PAGED DR FORD. NO S/S OF ACUTE DISTRESS. AAOX4. DENIES DIZZINESS/LIGHTHEADEDNESS. CL IN PLACE.
--- NOTE | 2019-04-30 14:20 | NUR ---
CALLED DR FORD ABOUT CRITICAL TROPONIN 0.203. NO NEW ORDERS AT THIS TIME.
--- NOTE | 2019-04-30 18:02 | NUR ---
PT RESTING IN BED. AAOX4. NO S/S OF ACUTE DISTRESS. CL IN PLACE.
--- NOTE | 2019-04-30 19:35 | NUR ---
PT ALERT AND ORIENTED. IMMEDIATELY ASKING FOR PAIN MEDICINE. DAY SHIFT NURSE IN ROOM TO GIVE BEDSIDE REPORT WITH THIS NURSE. BOTH THIS NURSE AND DAY SHIFT NURSE PROVIDED TEACHING AND STATED THAT VITAL SIGNS WILL BE TAKEN SHORTLY AND WE CAN MAKE A PLAN ABOUT PAIN MANAGEMENT. PATIENT AGREES. DENIES FURTHER NEEDS AT THIS TIME. HAS CALL LIGHT IN HAND. CPOC.
--- NOTE | 2019-04-30 20:00 | NUR ---
PATIENT STATED HE NEEDED PAIN MEDICINE. EDUCATED PATIENT ABOUT TRENDING BLOOD PRESSURE. PATIENT BEGAN TO GROW UPSET. STATES HE NEEDS HIS PAIN MEDICINE THAT HIS PAIN IS TOO MUCH AND HE DOESN'T CARE ABOUT HIS BLOOD PRESSURE. PROVIDED FURTHER EDUCATION. PATIENT STATED HE DOES NOT WANT BP MEDS IF IT IS GOING TO INTERFERE WITH PAIN MEDICATION. ADMINISTERED GABAPENTIN AND 15MG OXY. PER EMAR.
[2019-04-30 20:39] VITALS: BP 119/65
[2019-05-01 01:10] VITALS: BP 118/59
--- NOTE | 2019-05-01 03:18 | NUR ---
I have reviewed this patient and I concur with the Shift Assessment completed by the Licensed Practical Nurse today this shift.
[2019-05-01 05:18] VITALS: BP 155/87
[2019-05-01 06:22] LABS: BASOPHILS 0.1 % (0-2); EOSINOPHILS 0 % (0-7); HEMATOCRIT 39.2 % (42.0-54.0); IMMATURE GRANULOCYTES 0.8 % (0-5); LYMPHOCYTES 2.1 % (15-50); MCH 27.1 pg (26.0-34.0); MCHC 33.2 g/dL (31.0-37.0); MCV 81.8 fL (80.0-100.0); MEAN PLATELET VOLUME 10.2 fL (7.4-10.4); MONOCYTES 5.8 % (2-11); NEUTROPHILS 91.2 % (40-80); PLATELET COUNT 172 10x3/uL (130-400); RBC 4.79 10x6/uL (4.20-6.10); RDW 15.8 % (11.5-14.5); WBC 25.7 10x3/uL (4.8-10.8)
[2019-05-01 07:09] LABS: ALBUMIN 2.5 g/dL (3.4-5.0); BILIRUBIN - TOTAL 0.99 mg/dL (0.2-1.3); CALCIUM 7.7 mg/dL (8.5-10.1); CARBON DIOXIDE 28.5 mmol/L (21.0-32.0); CREATININE - SERUM 1.2 mg/dL (0.6-1.3); PROTEIN - SERUM 5.8 g/dL (6.4-8.2)
[2019-05-01 07:11] LABS: ANION GAP 12.8 mmol/L (8-16); POTASSIUM - SERUM 4.3 mmol/L (3.5-5.1)
--- NOTE | 2019-05-01 07:52 | NUR ---
PT RESTING IN BED. ASSISTED PT ON BEDPAN. NO S/S OF ACUTE DISTRESS. CL IN PLACE.
[2019-05-01 08:38] VITALS: BP 122/55
[2019-05-01 12:40] VITALS: BP 130/57
[2019-05-01 17:20] VITALS: BP 139/56
--- NOTE | 2019-05-01 17:31 | NUR ---
PT SITTING UP IN WC. AAOX4. NO S/S OF ACUTE DISTRESS. CL IN PLACE.
--- NOTE | 2019-05-01 19:15 | NUR ---
PT ALERT AND ORIENTED. PATIENT UP IN WHEEL CHAIR. REQUESTING PAIN MEDICINE. STATES "I NEED IT BAD!" VITAL SIGNS ASSESSED, DOCUMENTED IN CHART. VSS AND ADMINISTERED PRN PAIN MEDICINE. ASSISTED PATIENT BACK INTO BED. RESP. THERAPISTS IN ROOM. ENCOURAGED PATIENT TO WEAR BIPAP TONIGHT. PATIENT VERBALIZES UNDERSTANDING. ADMINISTERED OTHER MEDICATIONS. PATIENT ASKED TO WAIT TO TAKE KLONOPIN. DENIES FURTHER NEEDS AT THIS TIME. URINAL AND CALL LIGHT AT BEDSIDE. CPOC.
[2019-05-01 20:00] VITALS: BP 148/54
--- NOTE | 2019-05-01 20:10 | NUR ---
FEVER DOWN TO
[2019-05-02] VITALS: BP 147/72
--- NOTE | 2019-05-02 02:24 | NUR ---
I have reviewed this patient and I concur with the Shift Assessment completed by the Licensed Practical Nurse today this shift.
[2019-05-02 05:37] LABS: APPEARANCE CLEAR (CLEAR); BILIRUBIN NEGATIVE (NEGATIVE); COLOR YELLOW (YELLOW); GLUCOSE 1000 mg/dL (NEGATIVE); KETONE NEGATIVE (NEGATIVE); NITRITE NEGATIVE (NEGATIVE); PROTEIN 1+ mg/dL (NEGATIVE); SPECIFIC GRAVITY 1.015 (1.005-1.020); UROBILINOGEN NORMAL (NORMAL)
[2019-05-02 05:39] LABS: BACTERIA FEW /hpf (NEGATIVE); EPITHELIAL CELLS 0-5 /hpf (0-5); RED CELLS - URINE 0-5 /hpf (0-5); WHITE CELLS - URINE 0-5 /hpf (NEGATIVE); YEAST OCC /hpf (NONE SEEN)
[2019-05-02 07:10] LABS: BASOPHILS 0 % (0-2); EOSINOPHILS 0 % (0-7); HEMATOCRIT 34.2 % (42.0-54.0); HEMOGLOBIN 11.4 g/dL (13.5-17.5); IMMATURE GRANULOCYTES 0.5 % (0-5); LYMPHOCYTES 1.9 % (15-50); MCH 26.6 pg (26.0-34.0); MCHC 33.3 g/dL (31.0-37.0); MEAN PLATELET VOLUME 10.1 fL (7.4-10.4); MONOCYTES 3.8 % (2-11); NEUTROPHILS 93.8 % (40-80); PLATELET COUNT 144 10x3/uL (130-400); RBC 4.29 10x6/uL (4.20-6.10); RDW 15.6 % (11.5-14.5)
[2019-05-02 07:23] LABS: MCV 79.7 fL (80.0-100.0); WBC 14.4 10x3/uL (4.8-10.8)
[2019-05-02 07:49] LABS: ALBUMIN 2.4 g/dL (3.4-5.0); ALKALINE PHOSPHATASE 95 U/L (46-116); ALT (SGPT) 32 U/L (10-68); BILIRUBIN - TOTAL 0.84 mg/dL (0.2-1.3); CALCIUM 8.3 mg/dL (8.5-10.1); CARBON DIOXIDE 29.6 mmol/L (21.0-32.0); CHLORIDE - SERUM 98 mmol/L (98-107); POTASSIUM - SERUM 3.9 mmol/L (3.5-5.1); PROTEIN - SERUM 5.6 g/dL (6.4-8.2); SODIUM 134 mmol/L (136-145); TROPONIN-I 0.028 ng/mL (0.000-0.060)
[2019-05-02 07:52] LABS: CALC OSMOLALITY 278 mosm/kg (275-300); CREATININE - SERUM 0.8 mg/dL (0.6-1.3); GLUCOSE 163 mg/dL (74-106); UREA NITROGEN 33 mg/dL (7-18); eGFR NON AFRICAN AMERICAN > 90 mL/min (90-120)
--- NOTE | 2019-05-02 08:00 | NUR ---
FSBS 203. GIVEN 12 UNITS HUMALOG SUBQ PER SS. AWAKE AND ALERT. ORIENTED X3. NO C/O AT THIS TIME. INCONTINENT OF URINE THIS AM. SKIN CARE PER STAFF. LINENS CHANGED. LUNGS ARE DIMINISHED THROUGHTOUT BUT NO NOISES NOTED. SKIN IS INTACT WTIHOUT REDNESS. SL TO LEFT WRIST IS PATENT WITIHOUT REDNESS AT INSERTION SITE. DENIES NEEDS. BREAKFAST SERVED IN ROOM.
[2019-05-02 08:52] VITALS: BP 136/70
--- NOTE | 2019-05-02 09:45 | NUR ---
HAD SMALL AMOUNT OF SOFT STOOL. SKIN CAre PER STAFF. DENIES NEEDS. REQUESTED AND GIVEN 15MG OXY PO FOR C/O BACK, CHEST PAIN LEVEL 8. WILL MONITOR.
--- NOTE | 2019-05-02 11:00 | NUR ---
RESTING QUIETLY IN BED FAMILY IN ROOM.
[2019-05-02 12:03] VITALS: BP 151/70
--- NOTE | 2019-05-02 15:02 | NUR ---
OT NOTE: PT REQUIRED MAX A FOR "SCOOTING UP" BED MOB TASKS. PT COMPLETED SIDE ROLLING SPV. PT COMPLETED FACE WASH WITH SET UP. ELEUTERIO SMILEY COTA
[2019-05-02 17:02] VITALS: BP 148/67
--- NOTE | 2019-05-02 19:57 | NUR ---
NO CHANGES NOTED DENIES NEEDS.
[2019-05-02 20:34] VITALS: BP 145/81
[2019-05-03 01:22] VITALS: BP 114/71
[2019-05-03 05:18] VITALS: BP 147/73
[2019-05-03 06:03] LABS: BASOPHILS 0.1 % (0-2); EOSINOPHILS 0.1 % (0-7); HEMOGLOBIN 12.1 g/dL (13.5-17.5); IMMATURE GRANULOCYTES 0.4 % (0-5); LYMPHOCYTES 2.8 % (15-50); MCH 26.5 pg (26.0-34.0); MCHC 32.7 g/dL (31.0-37.0); MEAN PLATELET VOLUME 10.4 fL (7.4-10.4); MONOCYTES 3.4 % (2-11); NEUTROPHILS 93.2 % (40-80); RBC 4.57 10x6/uL (4.20-6.10); RDW 15.8 % (11.5-14.5)
[2019-05-03 06:20] LABS: PLATELET COUNT 173 10x3/uL (130-400)
[2019-05-03 06:24] LABS: ALBUMIN 2.5 g/dL (3.4-5.0); ALKALINE PHOSPHATASE 92 U/L (46-116); ALT (SGPT) 38 U/L (10-68); BILIRUBIN - TOTAL 0.97 mg/dL (0.2-1.3); CALC OSMOLALITY 275 mosm/kg (275-300); CALCIUM 7.8 mg/dL (8.5-10.1); CARBON DIOXIDE 30.1 mmol/L (21.0-32.0); CHLORIDE - SERUM 98 mmol/L (98-107); CREATININE - SERUM 0.7 mg/dL (0.6-1.3); GLUCOSE 144 mg/dL (74-106); PROTEIN - SERUM 5.3 g/dL (6.4-8.2); SODIUM 134 mmol/L (136-145); UREA NITROGEN 26 mg/dL (7-18); eGFR NON AFRICAN AMERICAN > 90 mL/min (90-120)
[2019-05-03 06:27] LABS: POTASSIUM - SERUM 4.9 mmol/L (3.5-5.1)
--- NOTE | 2019-05-03 07:17 | NUR ---
AWAKE AND ALERT. ORIENTED X3. REQUESTED AND GIVEN 15MG OXY PO FOR C/O BACK AND CHEST PAIN LEVEL 8. WILL MONITOR. LUNGS HAVE WHEEZES AND CRACKLES THROUGHOUT, REPORTED PRODUCTIVE COUGH. SKIN IS INTACT WITHOUT REDNESS WITH MULTIPLE AREAS OF BRUISING NOTED IN VARIOS STAGES OF HEALING. SL TO LEFT WRIST AREA IS PATENT WTIHOUT REDNESS AT INSERTION SITE. DENIES NEEDS.
[2019-05-03 08:57] VITALS: BP 167/89
[2019-05-03 12:11] VITALS: BP 140/64
--- NOTE | 2019-05-03 15:34 | NUR ---
OT NOTE: PT COMPLETED SITTING BALANCE WITH SBA . PT COMPLETED BED MOB WITH MIN A. PT COMPLETED UE AROM AX. PT IS ANXIOUS OT NOTE: PT COMPLETED SITTING BALANCE WITH SBA. PT COMPLETED BED MOB TASKS WITH MIN A. PT COMPLETED UE AROM AXS. PT IS DISGRUNTLED THAT HE DID NOT GET TO GO HOME TODAY. PT ASKED IF I HAD A CIGARETTE. THANK YOU, CORIN RICHARDS
[2019-05-03 19:07] VITALS: BP 117/47
--- NOTE | 2019-05-03 20:00 | NUR ---
ASSESSMENT PER FLOWSHEET. SALINE LOCK PATENT LEFT WRIST. MULTIPLE BRUISES AND SKIN TEAR TO RT ELEBOW. BILATERAL AMPUTEE (OLD) PLACED BACK ON BIPAP MACHINE.
--- NOTE | 2019-05-03 20:10 | NUR ---
VVWZ=805. TX PER S/S INSULIN SEE MAR.
--- NOTE | 2019-05-03 22:00 | NUR ---
MEDS GIVEN PER MAR.
[2019-05-03 22:08] VITALS: BP 136/76
--- NOTE | 2019-05-04 00:27 | NUR ---
AQHZ=859.NO COVERAGE
[2019-05-04 00:50] VITALS: BP 111/60
[2019-05-04 05:34] VITALS: BP 144/68
[2019-05-04 06:28] LABS: ALBUMIN 2.4 g/dL (3.4-5.0); ALKALINE PHOSPHATASE 91 U/L (46-116); ALT (SGPT) 33 U/L (10-68); CALCIUM 7.6 mg/dL (8.5-10.1); CARBON DIOXIDE 33.7 mmol/L (21.0-32.0); CHLORIDE - SERUM 101 mmol/L (98-107); CREATININE - SERUM 0.7 mg/dL (0.6-1.3); PROTEIN - SERUM 5.1 g/dL (6.4-8.2); SODIUM 137 mmol/L (136-145); UREA NITROGEN 24 mg/dL (7-18); eGFR NON AFRICAN AMERICAN > 90 mL/min (90-120)
[2019-05-04 06:41] LABS: HEMOGLOBIN 12.5 g/dL (13.5-17.5); MCH 26.5 pg (26.0-34.0); MCHC 32.9 g/dL (31.0-37.0); MCV 80.7 fL (80.0-100.0); MEAN PLATELET VOLUME 10.1 fL (7.4-10.4); PLATELET COUNT 192 10x3/uL (130-400); RBC 4.71 10x6/uL (4.20-6.10); RDW 15.9 % (11.5-14.5); WBC 22.6 10x3/uL (4.8-10.8)
[2019-05-04 07:20] LABS: CALC OSMOLALITY 274 mosm/kg (275-300); POTASSIUM - SERUM 4.1 mmol/L (3.5-5.1)
[2019-05-04 07:21] LABS: GLUCOSE 47 mg/dL (74-106)
--- NOTE | 2019-05-04 08:08 | NUR ---
LAB CALLED GLUCOSE-43. RECHECKED FSBS-61. GAVE ORANGE JUICE AND ORANGE SHERBERT. PT REFUSED PEANUT BUTTER CRACKERS. AAOX4. RESTING IN BED WATCHING TV. NO S/S OF ACUTE DISTRESS. CL IN PLACE.
[2019-05-04 09:00] VITALS: BP 144/42
[2019-05-04 10:59] LABS: ANISOCYTOSIS OCC; HYPOCHROMASIA OCC; LYMPHOCYTES 10 % (15-50); MONOCYTES 17 % (2-11); NEUTROPHILS 65 % (40-80); PLATELET ESTIMATE NORMAL
[2019-05-04 12:05] VITALS: BP 141/64
--- NOTE | 2019-05-04 13:15 | NUR ---
NUTRITION F/U PT TOLERATING ADA DIET, EATING LUNCH DURING RD VISIT. PT HOPEFUL FOR DC SOON. WILL CONTINUE TO PROVIDE CURRENT DIET, MONITOR PO INTAKE. RD FOLLOWING
[2019-05-04 16:21] VITALS: BP 136/60
--- NOTE | 2019-05-04 16:55 | NUR ---
OT NOTE: PT COMPLETED BED MOB TASKS WITH CGA. PT COMPLETED BUE AROM EXS. PT COMPLETED FACE WASHING WITH SET UP. THANK YOU, CORIN RICHARDS
--- NOTE | 2019-05-04 19:32 | NUR ---
PT CAME IN FROM OUTSIDE. HOOKED PT BACK UP TO IV. NO S/S OF ACUTE DISTRESS. CL IN PLACE.
[2019-05-04 20:52] VITALS: BP 103/42
--- NOTE | 2019-05-04 21:00 | NUR ---
WATCHING TV QUEITLY WITH NO DISTRESS NOTED. O2 @ 2L PER NC ON. RESP UNALBORED. IV TO RIGHT WRIST WITHOUT REDNESS OR EDEMA NOTED. CL IN REACH
--- NOTE | 2019-05-05 00:30 | NUR ---
PATIENT LYING QUEITLY. APPEARS DIAPHORETIC. BS.39. PATIENT SLOW TO RESPOND. D50W 25 ML GIVEN PER OCT..SPO2 @ 98%
--- NOTE | 2019-05-05 00:30 | NUR ---
BS 156. PATIENT IS RESPONDING TO VERBAL STIMULI. NO DISTRESS NOTED.
[2019-05-05 01:11] VITALS: BP 112/50
--- NOTE | 2019-05-05 04:49 | NUR ---
I have reviewed this patient and I concur with the Shift Assessment completed by the Licensed Practical Nurse today this shift.
[2019-05-05 06:01] VITALS: BP 118/62
[2019-05-05 06:39] LABS: BASOPHILS 0.1 % (0-2); EOSINOPHILS 0.7 % (0-7); HEMATOCRIT 37.8 % (42.0-54.0); HEMOGLOBIN 12.3 g/dL (13.5-17.5); IMMATURE GRANULOCYTES 0.8 % (0-5); LYMPHOCYTES 3.8 % (15-50); MCH 26.2 pg (26.0-34.0); MCHC 32.5 g/dL (31.0-37.0); MCV 80.6 fL (80.0-100.0); MEAN PLATELET VOLUME 9.6 fL (7.4-10.4); NEUTROPHILS 86.6 % (40-80); PLATELET COUNT 169 10x3/uL (130-400); RBC 4.69 10x6/uL (4.20-6.10); WBC 18.9 10x3/uL (4.8-10.8)
[2019-05-05 06:43] LABS: ALBUMIN 2.3 g/dL (3.4-5.0); ALKALINE PHOSPHATASE 89 U/L (46-116); ALT (SGPT) 27 U/L (10-68); BILIRUBIN - TOTAL 0.85 mg/dL (0.2-1.3); CALC OSMOLALITY 280 mosm/kg (275-300); CALCIUM 7.9 mg/dL (8.5-10.1); CARBON DIOXIDE 30.4 mmol/L (21.0-32.0); CHLORIDE - SERUM 102 mmol/L (98-107); CREATININE - SERUM 0.8 mg/dL (0.6-1.3); GLUCOSE 80 mg/dL (74-106); POTASSIUM - SERUM 3.6 mmol/L (3.5-5.1); PROTEIN - SERUM 4.9 g/dL (6.4-8.2); SODIUM 139 mmol/L (136-145); UREA NITROGEN 23 mg/dL (7-18); eGFR NON AFRICAN AMERICAN > 90 mL/min (90-120)
--- NOTE | 2019-05-05 08:02 | NUR ---
PT RESTING IN BED. AAOX4. WATCHING TV. BROUGHT PT DIET COKE PER REQUEST. NO S/S OF ACUTE DISTRESS. CL IN PLACE.
[2019-05-05 08:43] VITALS: BP 139/60
[2019-05-05] MEDS ORDERED: PREDNISONE10 MG PO (14:55)
--- NOTE | 2019-05-05 15:55 | NUR ---
DC PAPERWORK AND EDUCATION DONE WITH PT. DC IV WITH TIP INTACT. PT FAMILY CARRIED ALL BELONGINGS DOWN. NO S/S OF ACUTE DISTRESS. PT PROPELLED SELF IN HIS WC OFF FLOOR.
--- NOTE | 2019-05-05 16:09 | NUR ---
OT NOTE: PT COMPLETED W/C TO BED TRANSFER WITH SPV. PT COMPLETED BED MOB WITH SPV. PT COMPLETED BUE EXS WITH E/C MOBILITY. PT COMPLETED FACE WASH WITH SET UP. THANK YOU, CORIN RICHARDS
--- NOTE | 2019-05-06 14:16 | MORECARE ---
CASE MANAGEMENT DISCHARGE SUMMARY PATIENT: GONZALEZ OLIVEIRA UNIT: [id number] ADM DATE: 04/24/19 AGE: 78 : 39 SEX: M ROOM/BED: D.2240 AUTHOR: PROSPER,DOC PHYSICIAN: REFERRING PHYSICIAN: RAMIRO LARES MD DATE OF SERVICE: 05/06/19 Discharge Plan Patient Name: GONZALEZ OLIVEIRA Facility: [facility]:[place] : 1940 Planned Disposition: Home Anticipated Discharge Date: 04/26/19 Discharge Date: 05/05/2019 Expected LOS: 2 Initial Reviewer: [email or web address] Initial Review Date: 04/24/2019 Generated: 05/06/19 3:16 pm DCP- Discharge Planning Updated by [email or web address]: Savanah Fernandez on 04/24/19 4:[address] DC PLAN: Return home with at dc. ANTICIPATED DC NEEDS: Used [facility] in past. If HH ordered at dc wants to use [facility] again. CM met with patient, his ,his son, and his daughter in law to complete initial dc planning assessment. CM educated patient on the CM role and verbal consent given by patient to complete assessment. CM verified patient's address, phone number, and emergency contact phone numbers. Patient lives at home with his and a cg that lives with them that assists. They stated the cg needed a place to live so they let him live there for his assistance. At discharge patient plans to return home and feels this is a safe discharge. CM discussed availability of home health, rehab services, and medical equipment. Patient's stated he has had [facility] in the past and if HH is ordered at dc they would like to use [facility] again. LUPILLO signed by patient's for [facility]. Signed form placed on chart. Patient reports his or son will transport him home at time of discharge. CM will continue to follow and will assist as needed with dc plans/needs. Savanah Fernandez RN, [facility] DCPIA - Discharge Planning Initial Assessment Updated by [email or web address]: Savanah Fernandez on 04/24/19 5:17 pm * Is the patient Alert and Oriented? Yes * How many steps to enter\exit or inside your home? ramp * PCP Dr. Clarice Sanchez * Pharmacy [facility] in [place] * Preadmission Environment Home with Family * ADLs Partial Dependent * Partial ADLs (Assistance needed) Ambulation Dressing Transfers * Equipment Oxygen Power Chair or Electric Scooter Wheelchair * Other Equipment Urinal * List name and contact numbers for known caregivers / representatives who currently or will assist patient after discharge: Shanna Oliveira - - [phone] Yeyo Oliveira - son - [phone] * Verbal permission to speak to the caregivers and representatives has been obtained from the patient. Yes * Community resources currently utilized Private Duty Care * Please name any agencies selected above. live in that assists him for room/board. * Additional services required to return to the preadmission environment? Yes * Can the patient safely return to the preadmission environment? Yes * Has this patient been hospitalized within the prior 30 days at any hospital? No Coverage Notice Reviewer: [email or web address] Renetta Hernandez Notice Issued Date-Time: 05/04/2019 16:36 Notice Type: IM Discharge Notice Notice Delivered To: Patient Relationship to Patient: Self Tree Puller Name: Delivery Method: HAND - Hand Delivered Yenny Days: Prior Verbal Notification: Recipient Understood Notice: Yes Recipient Signature: Yes Med Rec Note Co-signed by Attending: Coverage Notice Comment: IMM explained, signed, given, copy placed in MR Last DP export: 04/24/19 4:29 p Patient Name: GONZALEZ OLIVEIRA Page [id number] at 1416 All edits/amendments must be made on the electronic document DICTATION DATE: 05/06/191413 OPTICAL EFFECTS LINE UP PERSON: DIANA 05/06/191413 RPT#: [id number] DC DATE:05/05/19 STATUS: DIS IN [facility] [address] [place] [address] END OF REPORT
== END 2019-05-05 15:58 | disposition home or self-care (01) | DRG 193 ==
LOC: D.ER 14:38 → D.ICU 16:01 → D.MS 16:01 → D.ICU 04-26 13:07 → D.MS 04-28 14:51
PROVIDERS: Emergency Medicine; Internal Medicine Pulmonary Disease; ADMIT Internal Medicine Nephrology; ATTEND Internal Medicine Nephrology
DX: J18.9 Pneumonia, unspecified organism (principal); J96.01 Acute respiratory failure with hypoxia; I50.23 Acute on chronic systolic (congestive) heart failure; G93.41 Metabolic encephalopathy; I42.9 Cardiomyopathy, unspecified; F17.203 Nicotine dependence unspecified, with withdrawal; J44.1 Chronic obstructive pulmonary disease with (acute) exacerbation; E87.2 Acidosis; J44.0 Chronic obstructive pulmonary disease with (acute) lower respiratory infection; K21.9 Gastro-esophageal reflux disease without esophagitis; F32.9 Major depressive disorder, single episode, unspecified; I51.7 Cardiomegaly; I25.10 Atherosclerotic heart disease of native coronary artery without angina pectoris; J45.909 Unspecified asthma, uncomplicated; E11.65 Type 2 diabetes mellitus with hyperglycemia; Z89.512 Acquired absence of left leg below knee; Z89.511 Acquired absence of right leg below knee; R53.81 Other malaise